=== PATIENT | male | born 1955 | race Caucasian/White ===

== ENCOUNTER → 2016-05-28 | Outpatient (CLI) | payer OTHER ==
[~2016-05-28] MED LIST: /TAMS4CA OR; ANDROGEL TOP; ASPI81TA83 OR; CITA10TA2 PO; CYMB1CAP4 PO; LIDO5DIS EXT; LOSA25TA8 PO; LYRI75CA OR; SOMA350T OR; TPS cream TD; VALS80CA OR; VICO5TAB OR
--- NOTE | 2016-06-05 23:54 | ECWPNPC ---
PATIENT NAME: AMNA BERNAL : 1955 GENDER: MALE VISIT DATE: 05/28/2016 DISCHARGE DATE: 05/28/16 1051 VISIT LOCKED DATE TIME: PHYSICIAN: ANA VERA RESOURCE: ANA VERA REASON FOR APPOINTMENT 1. WC,LOW BACK HISTORY OF PRESENT ILLNESS HISTORY OF PRESENT ILLNESS: PAIN THE PATIENT DESCRIBES THE PAIN... 61 YEAR OLD MALE PATIENT WITH HISTORY OF CHRONIC BACK PAIN. PATIENT DESCRIBES THE PAIN SORE AND HAVING IT ALL THE TIME WITH A PAIN SCORE OF 4/10. PATIENT WAS INJURED IN A WORK RELATED INJURY ON 05/08/2009 WHEN HE WAS GETTING OUT OF A FORKLIFT AND FELL INJURING HIS BACK. PATIENT RECEIVED A LUMBAR EPIDURAL ON 04/24/2016 AND REPORTS OF GETTING GOOD PAIN RELIEF FROM THE PROCEDURE. PATIENT DENIES UNEXPLAINABLE WEIGHT LOSS, FEVER, CHILLS, NEW CHANGES ON HIS URINARY OR BOWEL CONTROL. FALL RISK SCREENING: SCREENING :NO FALLS IN THE PAST YEAR CURRENT MEDICATIONS TAKING FLOMAX 0.4 MG CAPSULE 1 CAPSULE 30 MINUTES AFTER THE SAME MEAL EACH DAY ORALLY ONCE A DAY, NOTES: 04/24/16 0700 TAKING ASPIR-81 81 MG TABLET DELAYED RELEASE 1 TABLET ORALLY ONCE A DAY, NOTES: 04/24/16 0700 TAKING HYDROCODONE-ACETAMINOPHEN 7.5-325 MG TABLET 1 TABLET NEEDED ORALLY TID PRN, NOTES: 04/23/16 1900 TAKING LYRICA 75 MG CAPSULE 1 CAPSULE ORALLY TID PRN, NOTES: 04/23/16 1900 TAKING LIDODERM 5 % PATCH 1 PATCH TO INTACT SKIN REMOVE AFTER 12 HOURS EXTERNALLY ONCE A DAY, NOTES: OFF 04/24/16 0700 MEDICATION LIST REVIEWED AND RECONCILED WITH THE PATIENT PAST MEDICAL HISTORY HTN ALLERGIES N.K.D.A. SURGICAL HISTORY NO SURGICAL HISTORY DOCUMENTED. FAMILY HISTORY NO FAMILY HISTORY DOCUMENTED. SOCIAL HISTORY GENERAL: TOBACCO USE ARE YOU A:NONSMOKER LEARNING BARRIERS / SPECIAL NEEDS ORIENTED TO PLAN OF CARE: PATIENT, PAIN MANAGEMENT PATIENT, ORIENTED TO PLAN OF CARE: PATIENT, PAIN MANAGEMENT PATIENT. NEW PATIENT PAIN DIARY TODAY'S VISITNOTES FROM 0-10, WHAT LEVEL IS YOUR PAIN TODAY?0 PAIN CLINIC PFS, CLERGY, PUBLIC HEALTH REFERRALS PFS REFERRAL NEEDED?NO CLERGY REFERRAL NEEDED?NO PUBLIC HEALTH REFERRAL NEEDED?NO WAS THE PROVIDER NOTIFIED OF ANY PERTINENT INFO?NO PFS REFERRAL NEEDED?NO CLERGY REFERRAL NEEDED?NO PUBLIC HEALTH REFERRAL NEEDED?NO WAS THE PROVIDER NOTIFIED OF ANY PERTINENT INFO?NO HOSPITALIZATION/MAJOR DIAGNOSTIC PROCEDURE NO HOSPITALIZATION HISTORY. REVIEW OF SYSTEMS CONSTITUTIONAL: ANY CHANGE IN YOUR MEDICAL CONDITION? NO . CHILLS NO . FEVER NO . INFECTION: DO YOU HAVE NEW INFECTIONS? NO . DO YOU HAVE HISTORY OF MRSA? NO . MUSCULOSKELETAL: ANY NEW PATTERNS OF PAIN OR NUMBNESS? NO . GASTROENTEROLOGY: ANY NEW CHANGE IN BOWEL CONTROL? NO . GENITOURINARY: ANY NEW CHANGE IN BLADDER CONTROL? NO . IS THERE A CHANCE YOU COULD BE ? NO . HEMATOLOGY/LYMPH: DO YOU TAKE ANY BLOOD THINNERS? (FOR EXAMPLE- COUMADIN, PLAVIX, AGGRENOX, PLATEL, PRADAXA, OR XARELTO) NO . WHEN WAS YOUR LAST DOSE? DATE: TIME: . NEUROLOGY: HAVE YOU FALLEN IN THE PAST 6 MONTHS? YES SLIPPED ON ICE 2 WEEKS AGO-NO INJURY . ANY NEW EXTREMITY NUMBNESS OR WEAKNESS? NO . CARDIOLOGY: DO YOU HAVE A PACEMAKER OR DEFIBRILLATOR? NO . RESPIRATORY: HAVE YOU BEEN SICK IN THE PAST WEEK? NO . FEVER NO . FLU LIKE SYMPTOMS? NO . COUGH NO . INTEGUMENTARY: DO YOU HAVE ANY RASHES OR OPEN SORES? NO . ALLERGIC/IMMUNO: ARE YOU ALLERGIC TO SHELLFISH OR IV DYE? NO . ANY NEW ALLERGIES? NO . PSYCHIATRIC: DO YOU HAVE THOUGHTS OF HURTING YOURSELF OR SOMEONE ELSE? NO . ARE YOU ABUSED, NEGLECTED, OR IN AN UNSAFE ENVIRONMENT? NO . ENDOCRINOLOGY: ARE YOU DIABETIC? NO . OTHER: DO YOU NEED ANY PRESCRIPTIONS? NO . IF YES, PLEASE LIST: ____ . ANY NEW PROBLEMS WITH YOUR MEDICATIONS? NO . WHEN DID YOU LAST EAT? ____ . WHEN DID YOU LAST DRINK? ____ . WHAT DID YOU LAST DRINK? ____ . NAME OF PERSON DRIVING YOU HOME? ____ . DO YOU HAVE ANY OTHER QUESTIONS OR CONCERNS NO . REVIEWED BY: PROVIDER: ANA VERA MD . VITAL SIGNS WT 236 LBS, HT 6'0", BMI 32.00 INDEX, BP 137/77 MM HG, HR 66 /MIN, RR 18 /MIN, TEMP 96.9 F, OXYGEN SAT % 97%, NA INITIALS SC 10:26, REVIEWED BY: AD. EXAMINATION : PATIENT IS ALERT O X 3 AND COOPERATIVE. TENDERNESS ON THE LUMBAR PARASPINAL MUSCLE GROUP. MRI OF THE LUMBAR SPINE DONE ON 03-11-2011 SHOWS A SMALL DISC HERNIATION AT L1-L2, DISC BULGE AT L2-L3, L3-L4, AND L5-S1 OPERATIVE POST-LAMINECTOMY AT L4-L5. ASSESSMENTS POSTLAMINECTOMY SYNDROME, NOT ELSEWHERE CLASSIFIED - M96.1 (PRIMARY) INTERVERTEBRAL DISC DISORDERS WITH RADICULOPATHY, LUMBAR REGION - M51.16 INTERVERTEBRAL DISC DISORDERS WITH RADICULOPATHY, LUMBOSACRAL REGION - M51.17 TREATMENT POSTLAMINECTOMY SYNDROME, NOT ELSEWHERE CLASSIFIED NOTES: WE DISCUSSED SEVERAL ISSUES WITH MR. BERNAL'S PAIN MANAGEMENT CASE. AT THIS TIME THE PAIN WILL CONTINUE WITH THE SAME MEDICATION REGIMEN BEFORE. DUE TO GOOD PAIN RELIEF PAIN IS A CANDIDATE FOR ANOTHER LUMBAR EPIDURAL INJECTION. WE DISCUSSED THE RISK, ALTERNATIVES, AND BENEFITS AND THE PATIENT WOULD LIKE TO PROCEED. INSTRUCTIONS WERE GIVEN, QUESTIONS WERE ANSWERED, PATIENT REPORTS UNDERSTANDING AND AGREES WITH THE PLAN. I, UMANG GIBBS, DOCUMENTED THE ABOVE INFORMATION ACTING A SCRIBE FOR DR. VERA. I HAVE REVIEWED THE ABOVE DOCUMENT, WRITTEN BY UMANG GIBBS SCRIBRigoberto AND I VERIFY THAT IT IS ACCURATE. OTHERS NOTES: WHAT IS LUMBAR EPIDURAL INJECTION? MATERIAL WAS PRINTED,LUMBAR EPIDURAL INJECTION: YOUR PROCEDURE MATERIAL WAS PRINTED. PROCEDURES PN WORKMANS' COMP OPINION IN YOUR OPINION, WAS THE INCIDENT THAT THE PATIENT DESCRIBED THE COMPETENT MEDICAL CAUSE OF THIS INJURY/ILLNESS? YES ARE THE PATIENT'S COMPLAINTS CONSISTENT WITH HIS/HER HISTORY OF THE INJURY/ILLNESS? YES IS THE PATIENT'S HISTORY OF THE INJURY/ILLNESS CONSISTENT WITH YOUR OBJECTIVE FINDING? YES WHAT IS THE PERCENTAGE OF TEMPORARY IMPAIRMENT? MODERATE TO MARKED = 66.7% IS THE PATIENT WORKING? NO DOCTOR ON SITE: ANA STARKS MD PROCEDURE CODES FA211 ESTABILISHED PATIENT [facility] FACILITY CHARGE G8730 PAIN ASSESS POS TOOL F/U PLAN DOC G8427 DOC MEDS VERIFIED W/PT OR RE FOLLOW UP LE PENDING APPROVAL ELECTRONICALLY SIGNED BY ANA VERA MD ON 06/05/2016 AT 09:46 PM EST DISCLAIMER : THIS IS A VISIT SUMMARY EXTRACTED FROM THE [employer] CHART. IT IS NOT A COPY OF THE [employer] PROGRESS NOTE. DAXA
== END ==
LOC: M PAIN 10:40
PROVIDERS: ATTEND Anesthesiology
DX: Z09 Encounter for follow-up examination after completed treatment for conditions other than malignant neoplasm (principal); G89.21 Chronic pain due to trauma; M96.1 Postlaminectomy syndrome, not elsewhere classified; M51.16 Intervertebral disc disorders with radiculopathy, lumbar region; M51.17 Intervertebral disc disorders with radiculopathy, lumbosacral region; I10 Essential (primary) hypertension; Z79.82 Long term (current) use of aspirin; Z79.891 Long term (current) use of opiate analgesic; Z79.899 Other long term (current) drug therapy

== ENCOUNTER → 2016-07-19 | Outpatient (CLI) | payer OTHER ==
--- NOTE | 2016-07-27 23:19 | ECWPNPC ---
PATIENT NAME: AMNA BERNAL : 1955 GENDER: MALE VISIT DATE: 07/19/2016 DISCHARGE DATE: 07/19/16 0959 VISIT LOCKED DATE TIME: PHYSICIAN: ANA VERA RESOURCE: ANA VERA REASON FOR APPOINTMENT 1. W/C BACK PAIN HISTORY OF PRESENT ILLNESS HISTORY OF PRESENT ILLNESS: PAIN THE PATIENT DESCRIBES THE PAIN... 61 YEAR OLD MALE PATIENT WITH HISTORY OF CHRONIC BACK PAIN. PATIENT DESCRIBES THE PAIN SORE AND HAVING IT ALL THE TIME WITH A PAIN SCORE OF 4/10. PATIENT WAS INJURED IN A WORK RELATED INJURY ON 05/08/2009 WHEN HE WAS GETTING OUT OF A FORKLIFT AND FELL INJURING HIS BACK. PATIENT RECEIVED A LUMBAR EPIDURAL ON 04/24/2016 AND STATES THAT THE PAIN IS STARTING TO RETURN. CURRENTLY THE PATIENT IS USING HYDROCODONE, LYRICA, AND THE LIDODERM PATCH WHICH HE STATES KEEPS HIM FUNCTIONAL. PATIENT DENIES UNEXPLAINABLE WEIGHT LOSS, FEVER, CHILLS, NEW CHANGES ON HIS URINARY OR BOWEL CONTROL. FALL RISK SCREENING: SCREENING :NO FALLS IN THE PAST YEAR CURRENT MEDICATIONS TAKING FLOMAX 0.4 MG CAPSULE 1 CAPSULE 30 MINUTES AFTER THE SAME MEAL EACH DAY ORALLY ONCE A DAY, NOTES: 04/24/16 0700 TAKING ASPIR-81 81 MG TABLET DELAYED RELEASE 1 TABLET ORALLY ONCE A DAY, NOTES: 04/24/16 0700 TAKING HYDROCODONE-ACETAMINOPHEN 7.5-325 MG TABLET 1 TABLET NEEDED ORALLY TID PRN, NOTES: 04/23/16 1900 TAKING LYRICA 75 MG CAPSULE 1 CAPSULE ORALLY TID PRN, NOTES: 04/23/16 190 TAKING LIDODERM 5 % PATCH 1 PATCH TO INTACT SKIN REMOVE AFTER 12 HOURS EXTERNALLY ONCE A DAY, NOTES: OFF 04/24/16 0700 MEDICATION LIST REVIEWED AND RECONCILED WITH THE PATIENT PAST MEDICAL HISTORY HTN ALLERGIES N.K.D.A. SURGICAL HISTORY NO SURGICAL HISTORY DOCUMENTED. FAMILY HISTORY NO FAMILY HISTORY DOCUMENTED. SOCIAL HISTORY GENERAL: TOBACCO USE ARE YOU A:NONSMOKER LEARNING BARRIERS / SPECIAL NEEDS ORIENTED TO PLAN OF CARE: PATIENT, PAIN MANAGEMENT PATIENT, ORIENTED TO PLAN OF CARE: PATIENT, PAIN MANAGEMENT PATIENT. NEW PATIENT PAIN DIARY TODAY'S VISITNOTES FROM 0-10, WHAT LEVEL IS YOUR PAIN TODAY?0 PAIN CLINIC PFS, CLERGY, PUBLIC HEALTH REFERRALS PFS REFERRAL NEEDED?NO CLERGY REFERRAL NEEDED?NO PUBLIC HEALTH REFERRAL NEEDED?NO WAS THE PROVIDER NOTIFIED OF ANY PERTINENT INFO?NO PFS REFERRAL NEEDED?NO CLERGY REFERRAL NEEDED?NO PUBLIC HEALTH REFERRAL NEEDED?NO WAS THE PROVIDER NOTIFIED OF ANY PERTINENT INFO?NO HOSPITALIZATION/MAJOR DIAGNOSTIC PROCEDURE NO HOSPITALIZATION HISTORY. REVIEW OF SYSTEMS CONSTITUTIONAL: ANY CHANGE IN YOUR MEDICAL CONDITION? NO . CHILLS NO . FEVER NO . INFECTION: DO YOU HAVE NEW INFECTIONS? NO . DO YOU HAVE HISTORY OF MRSA? NO . MUSCULOSKELETAL: ANY NEW PATTERNS OF PAIN OR NUMBNESS? NO . GASTROENTEROLOGY: ANY NEW CHANGE IN BOWEL CONTROL? NO . GENITOURINARY: ANY NEW CHANGE IN BLADDER CONTROL? NO . IS THERE A CHANCE YOU COULD BE ? NO . HEMATOLOGY/LYMPH: DO YOU TAKE ANY BLOOD THINNERS? (FOR EXAMPLE- COUMADIN, PLAVIX, AGGRENOX, PLATEL, PRADAXA, OR XARELTO) NO . WHEN WAS YOUR LAST DOSE? DATE: TIME: . NEUROLOGY: HAVE YOU FALLEN IN THE PAST 6 MONTHS? NO . ANY NEW EXTREMITY NUMBNESS OR WEAKNESS? NO . CARDIOLOGY: DO YOU HAVE A PACEMAKER OR DEFIBRILLATOR? NO . RESPIRATORY: HAVE YOU BEEN SICK IN THE PAST WEEK? NO . FEVER NO . FLU LIKE SYMPTOMS? NO . COUGH NO . INTEGUMENTARY: DO YOU HAVE ANY RASHES OR OPEN SORES? NO . ALLERGIC/IMMUNO: ARE YOU ALLERGIC TO SHELLFISH OR IV DYE? NO . ANY NEW ALLERGIES? NO . PSYCHIATRIC: DO YOU HAVE THOUGHTS OF HURTING YOURSELF OR SOMEONE ELSE? NO . ARE YOU ABUSED, NEGLECTED, OR IN AN UNSAFE ENVIRONMENT? NO . ENDOCRINOLOGY: ARE YOU DIABETIC? NO . OTHER: DO YOU NEED ANY PRESCRIPTIONS? NO . IF YES, PLEASE LIST: ____ . ANY NEW PROBLEMS WITH YOUR MEDICATIONS? NO . WHEN DID YOU LAST EAT? ____ . WHEN DID YOU LAST DRINK? ____ . WHAT DID YOU LAST DRINK? ____ . NAME OF PERSON DRIVING YOU HOME? ____ . DO YOU HAVE ANY OTHER QUESTIONS OR CONCERNS NO . REVIEWED BY: PROVIDER: ANA VERA MD . VITAL SIGNS WT 236.0 LBS, HT 6'0", BMI 32.00 INDEX, BP 127/84 MM HG, HR 77 /MIN, RR 16 /MIN, TEMP 96.7 F, OXYGEN SAT % 97, NA INITIALS TL 0933. EXAMINATION : PATIENT IS ALERT O X 3 AND COOPERATIVE. TENDERNESS ON THE LUMBAR PARASPINAL MUSCLE GROUP. LIMPING FROM RIGHT LEG. RIGHT LEG IS WEAKER THEN THE LEFT AT EXTENSION AND FLEXION. MRI OF THE LUMBAR SPINE DONE ON 03-11-2011 SHOWS A SMALL DISC HERNIATION AT L1-L2, DISC BULGE AT L2-L3, L3-L4, AND L5-S1 OPERATIVE POST-LAMINECTOMY AT L4-L5. ASSESSMENTS POSTLAMINECTOMY SYNDROME, NOT ELSEWHERE CLASSIFIED - M96.1 (PRIMARY) INTERVERTEBRAL DISC DISORDERS WITH RADICULOPATHY, LUMBAR REGION - M51.16 INTERVERTEBRAL DISC DISORDERS WITH RADICULOPATHY, LUMBOSACRAL REGION - M51.17 TREATMENT POSTLAMINECTOMY SYNDROME, NOT ELSEWHERE CLASSIFIED NOTES: WE DISCUSSED SEVERAL ISSUES WITH MR. BERNAL'S PAIN MANAGEMENT CASE. AT THIS TIME THE PATIENT WILL CONTINUE WITH THE SAME MEDICATION REGIME THAT IS PRESCRIBED BY HIS PRIMARY DOCTOR. THE LUMBAR EPIDURAL DONE IN APRIL GAVE THE PATIENT ROUGHLY 10 WEEKS OF RELIEF. PATIENT REPORTED MORE THEN A 50% REDUCTION IN PAIN AND STATED THAT IT INCREASED HIS MOBILITY AND FUNCTIONALITY. MR. BERNAL WOULD LIKE TO MOVE FORWARD WITH ANOTHER INJECTION. WE DISCUSSED THE RISKS, BENENFITS, AND ALTNERATIVES OF THE LUMBAR EPIDURAL AND THE PATIENT STATES HE WOULD LIKE TO MOVE FORWARD WITH THE INJECTION AT THIS TIME. INSTRUCTIONS WERE GIVEN, QUESTIONS WERE ANSWERED, PATIENT REPORTS UNDERSTANDING AND AGREES WITH THE PLAN. I, SALLY IBARRA, DOCUMENTED THE ABOVE INFORMATION ACTING A SCRIBE FOR DR. VERA. I HAVE REVIEWED THE ABOVE DOCUMENT, WRITTEN BY SALLY MARINELLI AND I VERIFY THAT IT IS ACCURATE. PROCEDURES PN WORKMANS' COMP OPINION IN YOUR OPINION, WAS THE INCIDENT THAT THE PATIENT DESCRIBED THE COMPETENT MEDICAL CAUSE OF THIS INJURY/ILLNESS? YES ARE THE PATIENT'S COMPLAINTS CONSISTENT WITH HIS/HER HISTORY OF THE INJURY/ILLNESS? YES IS THE PATIENT'S HISTORY OF THE INJURY/ILLNESS CONSISTENT WITH YOUR OBJECTIVE FINDING? YES WHAT IS THE PERCENTAGE OF TEMPORARY IMPAIRMENT? MODERATE TO MARKED = 66.7% IS THE PATIENT WORKING? NO DOCTOR ON SITE: ANA STARKS MD PROCEDURE CODES FA211 ESTABILISHED PATIENT [facility] FACILITY CHARGE G8427 DOC MEDS VERIFIED W/PT OR RE G8730 PAIN ASSESS POS TOOL F/U PLAN DOC DISPOSITION & COMMUNICATION FOLLOW UP LESI AFTER APPROVAL ELECTRONICALLY SIGNED BY ANA VERA MD ON 07/27/2016 AT 09:32 PM EDT DISCLAIMER : THIS IS A VISIT SUMMARY EXTRACTED FROM THE [employer] CHART. IT IS NOT A COPY OF THE [employer] PROGRESS NOTE. TESSAD
== END ==
LOC: M PAIN 09:20
PROVIDERS: ATTEND Anesthesiology
DX: M96.1 Postlaminectomy syndrome, not elsewhere classified (principal); M51.16 Intervertebral disc disorders with radiculopathy, lumbar region; M51.17 Intervertebral disc disorders with radiculopathy, lumbosacral region; Z79.899 Other long term (current) drug therapy; Z79.891 Long term (current) use of opiate analgesic; Z79.82 Long term (current) use of aspirin; I10 Essential (primary) hypertension

== ENCOUNTER → 2016-08-12 | Outpatient (CLI) | payer OTHER ==
--- NOTE | 2016-08-25 23:10 | ECWPNPC ---
PATIENT NAME: AMNA BERNAL : 1955 GENDER: MALE VISIT DATE: 08/12/2016 DISCHARGE DATE: 08/12/16 1602 VISIT LOCKED DATE TIME: PHYSICIAN: ANA VERA RESOURCE: ANA VERA REASON FOR APPOINTMENT 1. W/C HISTORY OF PRESENT ILLNESS HISTORY OF PRESENT ILLNESS: PAIN THE PATIENT DESCRIBES THE PAIN... 61 YEAR OLD MALE PATIENT WITH HISTORY OF CHRONIC BACK PAIN. PATIENT DESCRIBES THE PAIN ACHING, TENDER, THROBBING, SORE, AND HAVING IT ALL THE TIME WITH A PAIN SCORE OF 8/10 ON TODAY'S VISIT. PATIENT WAS INJURED IN A WORK RELATED INJURY ON 05/08/2009 WORKING FOR [employer], WHEN HE WAS GETTING OUT OF A FORKLIFT AND FELL INJURING HIS BACK. PATIENT RECEIVED A LUMBAR EPIDURAL ON 04/24/2016, AND STATES THAT THE PAIN HAS NOW RETURNED. PATIENT REPORTS THAT SINCE THE PAIN HAS RETURNED HE HAS DIFFICULTIES SLEEPING, HIS MOBILITY AND FUNCTIONALITY HAS DECREASED. PATIENT DENIES UNEXPLAINABLE WEIGHT LOSS, FEVER, CHILLS, NEW CHANGES ON HIS URINARY OR BOWEL CONTROL. FALL RISK SCREENING: SCREENING :NO FALLS IN THE PAST YEAR CURRENT MEDICATIONS TAKING FLOMAX 0.4 MG CAPSULE 1 CAPSULE 30 MINUTES AFTER THE SAME MEAL EACH DAY ORALLY ONCE A DAY TAKING ASPIR-81 81 MG TABLET DELAYED RELEASE 1 TABLET ORALLY ONCE A DAY TAKING HYDROCODONE-ACETAMINOPHEN 7.5-325 MG TABLET 1 TABLET NEEDED ORALLY TID PRN TAKING LYRICA 75 MG CAPSULE 1 CAPSULE ORALLY TID PRN TAKING LIDODERM 5 % PATCH 1 PATCH TO INTACT SKIN REMOVE AFTER 12 HOURS EXTERNALLY ONCE A DAY MEDICATION LIST REVIEWED AND RECONCILED WITH THE PATIENT PAST MEDICAL HISTORY HTN ALLERGIES N.K.D.A. SURGICAL HISTORY NO SURGICAL HISTORY DOCUMENTED. FAMILY HISTORY NO FAMILY HISTORY DOCUMENTED. SOCIAL HISTORY GENERAL: PAIN CLINIC PFS, CLERGY, PUBLIC HEALTH REFERRALS CLERGY REFERRAL NEEDED?NO WAS THE PROVIDER NOTIFIED OF ANY PERTINENT INFO?NO PFS REFERRAL NEEDED?NO PUBLIC HEALTH REFERRAL NEEDED?NO PATIENT: ____. HOSPITALIZATION/MAJOR DIAGNOSTIC PROCEDURE NO HOSPITALIZATION HISTORY. REVIEW OF SYSTEMS CONSTITUTIONAL: ANY CHANGE IN YOUR MEDICAL CONDITION? NO . CHILLS NO . FEVER NO . INFECTION: DO YOU HAVE NEW INFECTIONS? NO . DO YOU HAVE HISTORY OF MRSA? NO . MUSCULOSKELETAL: ANY NEW PATTERNS OF PAIN OR NUMBNESS? NO . GASTROENTEROLOGY: ANY NEW CHANGE IN BOWEL CONTROL? NO . GENITOURINARY: ANY NEW CHANGE IN BLADDER CONTROL? NO . IS THERE A CHANCE YOU COULD BE ? NO . HEMATOLOGY/LYMPH: DO YOU TAKE ANY BLOOD THINNERS? (FOR EXAMPLE- COUMADIN, PLAVIX, AGGRENOX, PLATEL, PRADAXA, OR XARELTO) NO . WHEN WAS YOUR LAST DOSE? DATE: TIME: . NEUROLOGY: HAVE YOU FALLEN IN THE PAST 6 MONTHS? NO . ANY NEW EXTREMITY NUMBNESS OR WEAKNESS? NO . CARDIOLOGY: DO YOU HAVE A PACEMAKER OR DEFIBRILLATOR? NO . RESPIRATORY: HAVE YOU BEEN SICK IN THE PAST WEEK? NO . FEVER NO . FLU LIKE SYMPTOMS? NO . COUGH NO . INTEGUMENTARY: DO YOU HAVE ANY RASHES OR OPEN SORES? NO . ALLERGIC/IMMUNO: ARE YOU ALLERGIC TO SHELLFISH OR IV DYE? NO . ANY NEW ALLERGIES? NO . PSYCHIATRIC: DO YOU HAVE THOUGHTS OF HURTING YOURSELF OR SOMEONE ELSE? NO . ARE YOU ABUSED, NEGLECTED, OR IN AN UNSAFE ENVIRONMENT? NO . ENDOCRINOLOGY: ARE YOU DIABETIC? NO . OTHER: DO YOU NEED ANY PRESCRIPTIONS? NO . IF YES, PLEASE LIST: ____ . ANY NEW PROBLEMS WITH YOUR MEDICATIONS? NO . WHEN DID YOU LAST EAT? ____ . WHEN DID YOU LAST DRINK? ____ . WHAT DID YOU LAST DRINK? ____ . NAME OF PERSON DRIVING YOU HOME? ____ . DO YOU HAVE ANY OTHER QUESTIONS OR CONCERNS NO . REVIEWED BY: PROVIDER: ANA VERA MD . VITAL SIGNS WT 234.0 LBS, HT 6'0", BMI 31.73 INDEX, BP 121/84 MM HG, HR 68 /MIN, RR 16 /MIN, TEMP 97.9 F, OXYGEN SAT % 94%, NA INITIALS TL 1527, REVIEWED BY: AD. EXAMINATION : PATIENT IS ALERT O X 3 AND COOPERATIVE. TENDERNESS ON THE LUMBAR PARASPINAL MUSCLE GROUP. PATIENT AMBULATES WITH AN ANTALGIC GAIT AND A LIMP ON THE RIGHT LEG. RIGHT LEG IS WEAKER THEN THE LEFT AT EXTENSION AND FLEXION. MRI OF THE LUMBAR SPINE DONE ON 03-11-2011 SHOWS A SMALL DISC HERNIATION AT L1-L2, DISC BULGE AT L2-L3, L3-L4, AND L5-S1 OPERATIVE POST-LAMINECTOMY AT L4-L5. ASSESSMENTS POSTLAMINECTOMY SYNDROME, NOT ELSEWHERE CLASSIFIED - M96.1 (PRIMARY) INTERVERTEBRAL DISC DISORDERS WITH RADICULOPATHY, LUMBAR REGION - M51.16 INTERVERTEBRAL DISC DISORDERS WITH RADICULOPATHY, LUMBOSACRAL REGION - M51.17 TREATMENT POSTLAMINECTOMY SYNDROME, NOT ELSEWHERE CLASSIFIED NOTES: WE DISCUSSED SEVERAL ISSUES WITH MR. BERNAL'S PAIN MANAGEMENT CASE. AT THIS TIME THE PATIENT WILL CONTINUE WITH THE SAME MEDICATION REGIME THAT IS PRESCRIBED BY HIS PRIMARY DOCTOR. DUE TO THE LAST EPIDURAL INJECTION PROVIDING THE PATIENT GOOD PAIN RELIEF FOR 10 WEEKS WITH INCREASED MOBILITY AND FUNCTIONALITY AND A 50 PERCENT DECREASE IN PAIN, HE IS A GOOD CANDIDATE TO RECEIVE ANOTHER L5-S1 LUMBAR EPIDURAL, WE DISCUSSED THE RISK, BENEFITS, AND ALTERNATIVES AND THE PATIENT WOULD LIKE TO PROCEED. PATIENT WILL BE BOOKED PENDING APPROVAL. , INSTRUCTIONS WERE GIVEN, QUESTIONS WERE ANSWERED, PATIENT REPORTS UNDERSTANDING AND AGREES WITH THE PLAN. I, UMANG GIBBS, DOCUMENTED THE ABOVE INFORMATION ACTING A SCRIBE FOR DR. VERA. I HAVE REVIEWED THE ABOVE DOCUMENT, WRITTEN BY UMANG GIBBS SCRIBRigoberto AND I VERIFY THAT IT IS ACCURATE. PROCEDURES PN WORKMANS' COMP OPINION IN YOUR OPINION, WAS THE INCIDENT THAT THE PATIENT DESCRIBED THE COMPETENT MEDICAL CAUSE OF THIS INJURY/ILLNESS? YES ARE THE PATIENT'S COMPLAINTS CONSISTENT WITH HIS/HER HISTORY OF THE INJURY/ILLNESS? YES IS THE PATIENT'S HISTORY OF THE INJURY/ILLNESS CONSISTENT WITH YOUR OBJECTIVE FINDING? YES WHAT IS THE PERCENTAGE OF TEMPORARY IMPAIRMENT? MODERATE TO MARKED = 66.7% IS THE PATIENT WORKING? NO DOCTOR ON SITE: ANA STARKS MD PROCEDURE CODES FA211 ESTABILISHED PATIENT [facility] FACILITY CHARGE G8730 PAIN ASSESS POS TOOL F/U PLAN DOC G8427 DOC MEDS VERIFIED W/PT OR RE DISPOSITION & COMMUNICATION FOLLOW UP LESI PENDING APPROVAL ELECTRONICALLY SIGNED BY ANA VERA MD ON 08/25/2016 AT 05:19 PM EDT DISCLAIMER : THIS IS A VISIT SUMMARY EXTRACTED FROM THE [employer] CHART. IT IS NOT A COPY OF THE [employer] PROGRESS NOTE. DAXA
== END ==
LOC: M PAIN 15:20
PROVIDERS: ATTEND Anesthesiology
DX: Z09 Encounter for follow-up examination after completed treatment for conditions other than malignant neoplasm (principal); M96.1 Postlaminectomy syndrome, not elsewhere classified; M51.16 Intervertebral disc disorders with radiculopathy, lumbar region; M51.17 Intervertebral disc disorders with radiculopathy, lumbosacral region; I10 Essential (primary) hypertension; Z79.82 Long term (current) use of aspirin; Z79.899 Other long term (current) drug therapy

== ENCOUNTER → 2016-08-22 | Outpatient (CLI) | payer OTHER ==
[~2016-08-22] MED LIST changes: +ISOVUE-M 300 61% 15ML VIAL (Q9967) As Ordered ONE; +LIDOCAINE 1% SDV INJ 30 ML VIAL As Ordered ONE; +methylPREDNISolone SUSP 40 MG/ML (DEPO-medrol) VIAL (J1030) As Ordered ONE
--- NOTE | 2016-08-22 15:56 | REP ---
Partial lumbar spine series: Three views: History: Lumbar epidural injection for pain. 8 seconds of fluoroscopy time is reported. Findings: A sequence of three last image hold fluoroscopic spot radiographs of the lumbosacral junction document needle position and contrast injection associated with lumbar epidural injection procedure. Signed by Rene Watt MD 08/22/2016 05:01 P
--- NOTE | 2016-08-28 23:44 | ECWPNPC ---
PATIENT NAME: AMNA BERNAL : 1955 GENDER: MALE VISIT DATE: 08/22/2016 DISCHARGE DATE: 08/22/16 1359 VISIT LOCKED DATE TIME: PHYSICIAN: ANA VERA RESOURCE: ANA VERA REASON FOR APPOINTMENT 1. [facility] [place] HISTORY OF PRESENT ILLNESS HISTORY OF PRESENT ILLNESS: PAIN THE PATIENT DESCRIBES THE PAIN... FALL RISK SCREENING: SCREENING :NO FALLS IN THE PAST YEAR CURRENT MEDICATIONS TAKING FLOMAX 0.4 MG CAPSULE 1 CAPSULE 30 MINUTES AFTER THE SAME MEAL EACH DAY ORALLY ONCE A DAY, NOTES: 08/22/16 0800 TAKING ASPIR-81 81 MG TABLET DELAYED RELEASE 1 TABLET ORALLY ONCE A DAY, NOTES: 08/22/16 0800 TAKING HYDROCODONE-ACETAMINOPHEN 7.5-325 MG TABLET 1 TABLET NEEDED ORALLY TID PRN, NOTES: 08/21/16 1500 TAKING LYRICA 75 MG CAPSULE 1 CAPSULE ORALLY TID PRN, NOTES: 08/21/16 0800 TAKING LIDODERM 5 % PATCH 1 PATCH TO INTACT SKIN REMOVE AFTER 12 HOURS EXTERNALLY ONCE A DAY, NOTES: 08/21/16 MEDICATION LIST REVIEWED AND RECONCILED WITH THE PATIENT PAST MEDICAL HISTORY HTN ALLERGIES N.K.D.A. SOCIAL HISTORY GENERAL: PAIN CLINIC PFS, CLERGY, PUBLIC HEALTH REFERRALS CLERGY REFERRAL NEEDED?NO WAS THE PROVIDER NOTIFIED OF ANY PERTINENT INFO?NO PFS REFERRAL NEEDED?NO PUBLIC HEALTH REFERRAL NEEDED?NO PATIENT: ____. REVIEW OF SYSTEMS CONSTITUTIONAL: ANY CHANGE IN YOUR MEDICAL CONDITION? NO . CHILLS NO . FEVER NO . INFECTION: DO YOU HAVE NEW INFECTIONS? NO . DO YOU HAVE HISTORY OF MRSA? NO . MUSCULOSKELETAL: ANY NEW PATTERNS OF PAIN OR NUMBNESS? NO . GASTROENTEROLOGY: ANY NEW CHANGE IN BOWEL CONTROL? NO . GENITOURINARY: ANY NEW CHANGE IN BLADDER CONTROL? NO . IS THERE A CHANCE YOU COULD BE ? NO . HEMATOLOGY/LYMPH: DO YOU TAKE ANY BLOOD THINNERS? (FOR EXAMPLE- COUMADIN, PLAVIX, AGGRENOX, PLATEL, PRADAXA, OR XARELTO) NO . WHEN WAS YOUR LAST DOSE? DATE: TIME: . NEUROLOGY: HAVE YOU FALLEN IN THE PAST 6 MONTHS? NO . ANY NEW EXTREMITY NUMBNESS OR WEAKNESS? NO . CARDIOLOGY: DO YOU HAVE A PACEMAKER OR DEFIBRILLATOR? NO . RESPIRATORY: HAVE YOU BEEN SICK IN THE PAST WEEK? NO . FEVER NO . FLU LIKE SYMPTOMS? NO . COUGH NO . INTEGUMENTARY: DO YOU HAVE ANY RASHES OR OPEN SORES? NO . ALLERGIC/IMMUNO: ARE YOU ALLERGIC TO SHELLFISH OR IV DYE? NO . ANY NEW ALLERGIES? NO . PSYCHIATRIC: DO YOU HAVE THOUGHTS OF HURTING YOURSELF OR SOMEONE ELSE? NO . ARE YOU ABUSED, NEGLECTED, OR IN AN UNSAFE ENVIRONMENT? NO . ENDOCRINOLOGY: ARE YOU DIABETIC? NO . OTHER: DO YOU NEED ANY PRESCRIPTIONS? NO . IF YES, PLEASE LIST: ____ . ANY NEW PROBLEMS WITH YOUR MEDICATIONS? NO . WHEN DID YOU LAST EAT? ____08/21/16 1900 . WHEN DID YOU LAST DRINK? ____08/21/162099 . WHAT DID YOU LAST DRINK? ____WATER . NAME OF PERSON DRIVING YOU HOME? ____CODY . DO YOU HAVE ANY OTHER QUESTIONS OR CONCERNS NO . REVIEWED BY: PROVIDER: . VITAL SIGNS WT 238.0 LBS, HT 6'0", BMI 32.28 INDEX, BP 132/81 MM HG, HR 71 /MIN, RR 16 /MIN, TEMP 98.5 F, OXYGEN SAT % 99%, NA INITIALS AW 1139, REVIEWED BY: MLF. ASSESSMENTS INTERVERTEBRAL DISC DISORDERS WITH RADICULOPATHY, LUMBOSACRAL REGION - M51.17 (PRIMARY) PROCEDURES PRE PROCEDURE DIAGNOSIS LUMBOSACRAL RADICULOPATHY, LUMBOSACRAL DISC DISORDER WITH RADICULOPATHY POST PROCEDURE DIAGNOSIS LUMBOSACRAL DISC DISORDER WITH RADICULOPATHY , LUMBOSACRAL RADICULOPATHY PROCEDURE L5-S1 EPIDURAL STEROID INJECTION UNDER FLUOROSCOPIC GUIDANCE SURGEON DR. ANA VERA SENIOR CLINICAL STUDY MANAGER NONE ANESTHESIA LOCAL PRE PROCEDURE NOTE THE PATIENT HAS A HISTORY OF CHRONIC LOW BACK PAIN. I EVALUATE THE PATIENT AND REVIEWED THE CHART. I WENT OVER THE RISKS, ALTERNATIVES, AND BENEFITS ASSOCIATED WITH THIS PROCEDURE. THE PATIENT WOULD LIKE TO PROCEED AND GIVE CONSENT TO PERFORMED THE PROCEDURE. THE PATIENT DENIES UNEXPLAINABLE WEIGHT LOSS, FEVER, CHILLS, OR NEW CHANGES IN URINARY OR BOWEL CONTROL. DESCRIPTION OF PROCEDURE THE PATIENT WAS BROUGHT TO THE PROCEDURE ROOM AND PLACED IN THE PRONE POSITION. THE LUMBOSACRAL AREA WAS CLEANED WITH BETADINE SOLUTION AND DRAPED ASEPTICALLY. THE PROCEDURE WAS DONE UNDER STERILE CONDITIONS. I CHECKED LATERALITY AND THE LEVEL WHERE THE PROCEDURE WAS GOING TO BE PERFORMED WITH THE PATIENT AND THE SUPPORTING STAFF AT THE MOMENT OF THE TIME OUT IN THE PROCEDURE ROOM. UNDER FLUOROSCOPIC GUIDANCE, THE TARGET POINT WAS SELECTED AT THE INTERLAMINAR LEVEL OF L5-S1. LIDOCAINE WAS USED TO NUMB THE SKIN AND THE SUBCUTANEOUS TISSUE BELOW IT. EPIDURAL TUOHY NEEDLE, 17-GAUGE, WAS ADVANCED UNDER FLUOROSCOPIC GUIDANCE AND FOLLOWING PATIENT FEEDBACK UNTIL THE EPIDURAL SPACE WAS REACHED, 7 CM DEEP INTO THE SKIN BY THE LOSS OF RESISTANCE TECHNIQUE. ISOVUE M DYE 30%, 0.25 ML, WAS INJECTED SHOWING ADEQUATE SPREAD OF THE DYE. THEN, A SOLUTION OF 3 ML OF NORMAL SALINE WITH DEPO-MEDROL 60 MG WAS INJECTED SLOWLY FOLLOWING PATIENT FEEDBACK. THERE WAS NO EVIDENCE OF BLOOD, PARESTHESIA OR CEREBROSPINAL FLUID DURING THE PROCEDURE. THE PATIENT WAS SENT TO THE RECOVERY ROOM. THE PATIENT WAS MOVING THE EXTREMITIES AND DOING WELL. THERE WAS NO COMPLICATION DURING THE PROCEDURE. FLUOROSCOPY TIME WAS 8 SECONDS. POST PROCEDURE NOTE THE PATIENT WILL BE SEEN IN A FOLLOW UP IN THE NEXT FEW WEEKS. INSTRUCTIONS WERE GIVEN, QUESTIONS WERE ANSWERED, AND THE PATIENT EXPRESSED UNDERSTANDING AND AGREES WITH THE PLAN. I, UMANG GIBBS, DOCUMENTED THE ABOVE INFORMATION ACTING A SCRIBE FOR DR. VERA. I HAVE REVIEWED THE ABOVE DOCUMENT, WRITTEN BY UMANG MARINELLI AND I VERIFY THAT IT IS ACCURATE. PN WORKMANS' COMP OPINION IN YOUR OPINION, WAS THE INCIDENT THAT THE PATIENT DESCRIBED THE COMPETENT MEDICAL CAUSE OF THIS INJURY/ILLNESS? YES ARE THE PATIENT'S COMPLAINTS CONSISTENT WITH HIS/HER HISTORY OF THE INJURY/ILLNESS? YES IS THE PATIENT'S HISTORY OF THE INJURY/ILLNESS CONSISTENT WITH YOUR OBJECTIVE FINDING? YES WHAT IS THE PERCENTAGE OF TEMPORARY IMPAIRMENT? MODERATE TO MARKED = 66.7% IS THE PATIENT WORKING? NO DOCTOR ON SITE: ANA STARKS MD DIAGNOSTIC IMAGING [facility] FLUORO GUIDE SPINE INJECTION (PAIN)[id number] PROCEDURE CODES 23491 LUMBAR/SACRAL W/ IMAGING 6045F RADXPS IN END [id number] PXD DISPOSITION & COMMUNICATION FOLLOW UP 3 WEEKS ELECTRONICALLY SIGNED BY ANA VERA MD ON 08/28/2016 AT 11:17 AM EDT DISCLAIMER : THIS IS A VISIT SUMMARY EXTRACTED FROM THE [employer] CHART. IT IS NOT A COPY OF THE [employer] PROGRESS NOTE. MTDD
== END ==
LOC: M PAIN 11:40
PROVIDERS: ATTEND Anesthesiology
DX: G89.29 Other chronic pain (principal); M51.17 Intervertebral disc disorders with radiculopathy, lumbosacral region; I10 Essential (primary) hypertension; Z79.82 Long term (current) use of aspirin; Z79.899 Other long term (current) drug therapy
CPT/HCPCS: 62323; J1030; Q9967

== ENCOUNTER → 2016-10-16 | Outpatient (CLI) | payer OTHER ==
[~2016-10-16] MED LIST changes: -ISOVUE-M 300 61% 15ML VIAL (Q9967) As Ordered ONE; -LIDOCAINE 1% SDV INJ 30 ML VIAL As Ordered ONE; -methylPREDNISolone SUSP 40 MG/ML (DEPO-medrol) VIAL (J1030) As Ordered ONE
--- NOTE | 2016-10-29 02:47 | ECWPNPC ---
PATIENT NAME: AMNA BERNAL : 1955 GENDER: MALE VISIT DATE: 10/16/2016 DISCHARGE DATE: 10/16/16 1551 VISIT LOCKED DATE TIME: PHYSICIAN: ANA VERA RESOURCE: ANA VERA REASON FOR APPOINTMENT 1. W/C LOW BACK PAIN HISTORY OF PRESENT ILLNESS HISTORY OF PRESENT ILLNESS: PAIN THE PATIENT DESCRIBES THE PAIN... 61 YEAR OLD MALE PATIENT WITH HISTORY OF CHRONIC BACK PAIN. PATIENT DESCRIBES THE PAIN ACHING, TENDER, THROBBING, SORE, AND HAVING IT ALL THE TIME WITH A PAIN SCORE OF 2/10 ON TODAY'S VISIT. PATIENT WAS INJURED IN A WORK RELATED INJURY ON 05/08/2009 WORKING FOR [employer], WHEN HE WAS GETTING OUT OF A FORKLIFT AND FELL INJURING HIS BACK. PATIENT RECEIVED A LUMBAR EPIDURAL ON 08/23/16, AND STATES THAT HIS PAIN IS STILL DECREASED BY 50% AND HAS INCREASED MOBILITY AND FUNCTIONALITY FROM THE INJECTION. PATIENT STATES THAT HIS PAIN IS INCREASED WITH ANY ACTIVITY INCLUDING STANDING, SITTING, OR WALKING FOR ANY LENGTH OF TIME. PATIENT DENIES UNEXPLAINABLE WEIGHT LOSS, FEVER, CHILLS, NEW CHANGES ON HIS URINARY OR BOWEL CONTROL. FALL RISK SCREENING: SCREENING :NO FALLS IN THE PAST YEAR CURRENT MEDICATIONS TAKING FLOMAX 0.4 MG CAPSULE 1 CAPSULE 30 MINUTES AFTER THE SAME MEAL EACH DAY ORALLY ONCE A DAY, NOTES: 08/22/16 0800 TAKING ASPIR-81 81 MG TABLET DELAYED RELEASE 1 TABLET ORALLY ONCE A DAY, NOTES: 08/22/16 0800 TAKING HYDROCODONE-ACETAMINOPHEN 7.5-325 MG TABLET 1 TABLET NEEDED ORALLY TID PRN, NOTES: 08/21/16 1500 TAKING LYRICA 75 MG CAPSULE 1 CAPSULE ORALLY TID PRN, NOTES: 08/21/16 0800 TAKING LIDODERM 5 % PATCH 1 PATCH TO INTACT SKIN REMOVE AFTER 12 HOURS EXTERNALLY ONCE A DAY, NOTES: 08/21/16 MEDICATION LIST REVIEWED AND RECONCILED WITH THE PATIENT PAST MEDICAL HISTORY HTN ALLERGIES N.K.D.A. SURGICAL HISTORY NO SURGICAL HISTORY DOCUMENTED. FAMILY HISTORY NO FAMILY HISTORY DOCUMENTED. SOCIAL HISTORY GENERAL: PAIN CLINIC PFS, CLERGY, PUBLIC HEALTH REFERRALS CLERGY REFERRAL NEEDED?NO WAS THE PROVIDER NOTIFIED OF ANY PERTINENT INFO?NO PFS REFERRAL NEEDED?NO PUBLIC HEALTH REFERRAL NEEDED?NO PATIENT: ____. HOSPITALIZATION/MAJOR DIAGNOSTIC PROCEDURE NO HOSPITALIZATION HISTORY. REVIEW OF SYSTEMS CONSTITUTIONAL: ANY CHANGE IN YOUR MEDICAL CONDITION? NO . CHILLS NO . FEVER NO . INFECTION: DO YOU HAVE NEW INFECTIONS? NO . DO YOU HAVE HISTORY OF MRSA? NO . MUSCULOSKELETAL: ANY NEW PATTERNS OF PAIN OR NUMBNESS? NO . GASTROENTEROLOGY: ANY NEW CHANGE IN BOWEL CONTROL? NO . GENITOURINARY: ANY NEW CHANGE IN BLADDER CONTROL? NO . IS THERE A CHANCE YOU COULD BE ? NO . HEMATOLOGY/LYMPH: DO YOU TAKE ANY BLOOD THINNERS? (FOR EXAMPLE- COUMADIN, PLAVIX, AGGRENOX, PLATEL, PRADAXA, OR XARELTO) NO . WHEN WAS YOUR LAST DOSE? DATE: TIME: . NEUROLOGY: HAVE YOU FALLEN IN THE PAST 6 MONTHS? NO . ANY NEW EXTREMITY NUMBNESS OR WEAKNESS? NO . CARDIOLOGY: DO YOU HAVE A PACEMAKER OR DEFIBRILLATOR? NO . RESPIRATORY: HAVE YOU BEEN SICK IN THE PAST WEEK? NO . FEVER NO . FLU LIKE SYMPTOMS? NO . COUGH NO . INTEGUMENTARY: DO YOU HAVE ANY RASHES OR OPEN SORES? NO . ALLERGIC/IMMUNO: ARE YOU ALLERGIC TO SHELLFISH OR IV DYE? NO . ANY NEW ALLERGIES? NO . PSYCHIATRIC: DO YOU HAVE THOUGHTS OF HURTING YOURSELF OR SOMEONE ELSE? NO . ARE YOU ABUSED, NEGLECTED, OR IN AN UNSAFE ENVIRONMENT? NO . ENDOCRINOLOGY: ARE YOU DIABETIC? NO . OTHER: DO YOU NEED ANY PRESCRIPTIONS? NO . IF YES, PLEASE LIST: ____ . ANY NEW PROBLEMS WITH YOUR MEDICATIONS? NO . WHEN DID YOU LAST EAT? ____ . WHEN DID YOU LAST DRINK? ____ . WHAT DID YOU LAST DRINK? ____ . NAME OF PERSON DRIVING YOU HOME? ____ . DO YOU HAVE ANY OTHER QUESTIONS OR CONCERNS NO . REVIEWED BY: PROVIDER: ANA VERA MD . VITAL SIGNS WT 236 LBS, HT 6'0", BMI 32.00 INDEX, BP 118/77 MM HG, HR 65 /MIN, RR 16 /MIN, TEMP 98.5 F, OXYGEN SAT % 96%, NA INITIALS SC 14:51. EXAMINATION : PATIENT IS ALERT O X 3 AND COOPERATIVE. TENDERNESS ON THE LUMBAR PARASPINAL MUSCLE GROUP. PATIENT AMBULATES WITH AN ANTALGIC GAIT AND A LIMP ON THE RIGHT LEG. RIGHT LEG IS WEAKER THEN THE LEFT AT EXTENSION AND FLEXION. MRI OF THE LUMBAR SPINE DONE ON 03-11-2011 SHOWS A SMALL DISC HERNIATION AT L1-L2, DISC BULGE AT L2-L3, L3-L4, AND L5-S1 OPERATIVE POST-LAMINECTOMY AT L4-L5. ASSESSMENTS POSTLAMINECTOMY SYNDROME, NOT ELSEWHERE CLASSIFIED - M96.1 (PRIMARY) INTERVERTEBRAL DISC DISORDERS WITH RADICULOPATHY, LUMBAR REGION - M51.16 INTERVERTEBRAL DISC DISORDERS WITH RADICULOPATHY, LUMBOSACRAL REGION - M51.17 TREATMENT POSTLAMINECTOMY SYNDROME, NOT ELSEWHERE CLASSIFIED NOTES: WE DISCUSSED SEVERAL ISSUES WITH MR. BERNAL'S PAIN MANAGEMENT CASE. AT THIS TIME THE PATIENT IS DOING VERY WELL FROM THE LUMBAR EPIDURAL ON 08/23/16. PATIENT STILL HAS OVER 50% RELIEF FROM THE PAIN WITH INCREASED MOBILITY AND FUNCTIONALITY. MR. BERNAL STATES THAT NO INTERVENTIONS ARE NEEDED AT THIS TIME AND IS VERY MANAGEABLE. PATIENT WILL RETURN TO THE CLINIC IN 6 WEEKS AND WAS ADVISED TO CALL IF THE PAIN SIGNIFICANTLY WORSENS. INSTRUCTIONS WERE GIVEN, QUESTIONS WERE ANSWERED, PATIENT REPORTS UNDERSTANDING AND AGREES WITH THE PLAN. I, SALLY IBARRA, DOCUMENTED THE ABOVE INFORMATION ACTING A SCRIBE FOR DR. VERA. I HAVE REVIEWED THE ABOVE DOCUMENT, WRITTEN BY SALLY MARINELLI AND I VERIFY THAT IT IS ACCURATE. PROCEDURES PN WORKMANS' COMP OPINION IN YOUR OPINION, WAS THE INCIDENT THAT THE PATIENT DESCRIBED THE COMPETENT MEDICAL CAUSE OF THIS INJURY/ILLNESS? YES ARE THE PATIENT'S COMPLAINTS CONSISTENT WITH HIS/HER HISTORY OF THE INJURY/ILLNESS? YES IS THE PATIENT'S HISTORY OF THE INJURY/ILLNESS CONSISTENT WITH YOUR OBJECTIVE FINDING? YES WHAT IS THE PERCENTAGE OF TEMPORARY IMPAIRMENT? MODERATE TO MARKED = 66.7% IS THE PATIENT WORKING? NO DOCTOR ON SITE: ANA STARKS MD PROCEDURE CODES FA211 ESTABILISHED PATIENT [facility] FACILITY CHARGE G8427 DOC MEDS VERIFIED W/PT OR RE G8730 PAIN ASSESS POS TOOL F/U PLAN DOC DISPOSITION & COMMUNICATION FOLLOW UP 6 WEEKS ELECTRONICALLY SIGNED BY ANA VERA MD ON 10/28/2016 AT 03:34 PM EDT DISCLAIMER : THIS IS A VISIT SUMMARY EXTRACTED FROM THE [employer] CHART. IT IS NOT A COPY OF THE [employer] PROGRESS NOTE. DAXA
== END ==
LOC: M PAIN 14:40
PROVIDERS: ATTEND Anesthesiology
DX: M96.1 Postlaminectomy syndrome, not elsewhere classified (principal); M51.16 Intervertebral disc disorders with radiculopathy, lumbar region; M51.17 Intervertebral disc disorders with radiculopathy, lumbosacral region; I10 Essential (primary) hypertension; Z79.82 Long term (current) use of aspirin; Z79.899 Other long term (current) drug therapy

== ENCOUNTER → 2016-11-08 | Outpatient (CLI) | payer OTHER ==
--- NOTE | 2016-11-12 23:28 | ECWPNPC ---
PATIENT NAME: AMNA BERNAL : 1955 GENDER: MALE VISIT DATE: 11/08/2016 DISCHARGE DATE: 11/08/16 1304 VISIT LOCKED DATE TIME: PHYSICIAN: ANA VERA RESOURCE: ANA VERA REASON FOR APPOINTMENT 1. W/C BACK HISTORY OF PRESENT ILLNESS HISTORY OF PRESENT ILLNESS: PAIN THE PATIENT DESCRIBES THE PAIN... 61 YEAR OLD MALE PATIENT WITH HISTORY OF CHRONIC BACK PAIN. PATIENT DESCRIBES THE PAIN ACHING, TENDER, THROBBING, SORE, AND HAVING IT ALL THE TIME WITH A PAIN SCORE OF 8/10 ON TODAY'S VISIT. PATIENT WAS INJURED IN A WORK RELATED INJURY ON 05/08/2009 WORKING FOR [employer], WHEN HE WAS GETTING OUT OF A FORKLIFT AND FELL INJURING HIS BACK. PATIENT REPORTS OF TRYING PHYSICAL THERAPY IN THE PAST AND IT DID NOT WORK FOR HIM. PATIENT STATES THAT HE HAS NOT HAD BACK SURGERY SINCE HE WAS INJURED IN 2008. PATIENT RECEIVED A LESI ON 08/22/2016 AND STATES THAT THE INJECTION IS NO LONGER PROVIDING HIM GOOD PAIN RELIEF. PATIENT REPORTS OF DIFFICULTIES SLEEPING AND STAYING ASLEEP. PATIENT STATES THAT SINCE THE PAIN HAS RETURNED HE HAS DIFFICULTIES COMPLETING DAILY TASK AND CHORES. , PATIENT DENIES UNEXPLAINABLE WEIGHT LOSS, FEVER, CHILLS, NEW CHANGES ON HIS URINARY OR BOWEL CONTROL. FALL RISK SCREENING: SCREENING :NO FALLS IN THE PAST YEAR CURRENT MEDICATIONS TAKING FLOMAX 0.4 MG CAPSULE 1 CAPSULE 30 MINUTES AFTER THE SAME MEAL EACH DAY ORALLY ONCE A DAY TAKING ASPIR-81 81 MG TABLET DELAYED RELEASE 1 TABLET ORALLY ONCE A DAY TAKING HYDROCODONE-ACETAMINOPHEN 7.5-325 MG TABLET 1 TABLET NEEDED ORALLY TID PRN TAKING LYRICA 75 MG CAPSULE 1 CAPSULE ORALLY TID PRN TAKING LIDODERM 5 % PATCH 1 PATCH TO INTACT SKIN REMOVE AFTER 12 HOURS EXTERNALLY ONCE A DAY, NOTES: ] MEDICATION LIST REVIEWED AND RECONCILED WITH THE PATIENT PAST MEDICAL HISTORY HTN ALLERGIES N.K.D.A. SURGICAL HISTORY NO SURGICAL HISTORY DOCUMENTED. FAMILY HISTORY NO FAMILY HISTORY DOCUMENTED. SOCIAL HISTORY GENERAL: PAIN CLINIC PFS, CLERGY, PUBLIC HEALTH REFERRALS CLERGY REFERRAL NEEDED?NO WAS THE PROVIDER NOTIFIED OF ANY PERTINENT INFO?NO PFS REFERRAL NEEDED?NO PUBLIC HEALTH REFERRAL NEEDED?NO PATIENT: ____. HOSPITALIZATION/MAJOR DIAGNOSTIC PROCEDURE NO HOSPITALIZATION HISTORY. REVIEW OF SYSTEMS REVIEWED BY: PROVIDER: . CONSTITUTIONAL: ANY CHANGE IN YOUR MEDICAL CONDITION? NO . CHILLS NO . FEVER NO . INFECTION: DO YOU HAVE NEW INFECTIONS? NO . DO YOU HAVE HISTORY OF MRSA? NO . MUSCULOSKELETAL: ANY NEW PATTERNS OF PAIN OR NUMBNESS? NO . GASTROENTEROLOGY: ANY NEW CHANGE IN BOWEL CONTROL? NO . GENITOURINARY: ANY NEW CHANGE IN BLADDER CONTROL? NO . IS THERE A CHANCE YOU COULD BE ? NO . HEMATOLOGY/LYMPH: DO YOU TAKE ANY BLOOD THINNERS? (FOR EXAMPLE- COUMADIN, PLAVIX, AGGRENOX, PLATEL, PRADAXA, OR XARELTO) NO . WHEN WAS YOUR LAST DOSE? DATE: TIME: . NEUROLOGY: HAVE YOU FALLEN IN THE PAST 6 MONTHS? NO . ANY NEW EXTREMITY NUMBNESS OR WEAKNESS? NO . CARDIOLOGY: DO YOU HAVE A PACEMAKER OR DEFIBRILLATOR? NO . RESPIRATORY: HAVE YOU BEEN SICK IN THE PAST WEEK? NO . FEVER NO . FLU LIKE SYMPTOMS? NO . COUGH NO . INTEGUMENTARY: DO YOU HAVE ANY RASHES OR OPEN SORES? NO . ALLERGIC/IMMUNO: ARE YOU ALLERGIC TO SHELLFISH OR IV DYE? NO . ANY NEW ALLERGIES? NO . PSYCHIATRIC: DO YOU HAVE THOUGHTS OF HURTING YOURSELF OR SOMEONE ELSE? NO . ARE YOU ABUSED, NEGLECTED, OR IN AN UNSAFE ENVIRONMENT? NO . ENDOCRINOLOGY: ARE YOU DIABETIC? NO . OTHER: DO YOU NEED ANY PRESCRIPTIONS? NO . IF YES, PLEASE LIST: ____ . ANY NEW PROBLEMS WITH YOUR MEDICATIONS? NO . WHEN DID YOU LAST EAT? ____ . WHEN DID YOU LAST DRINK? ____ . WHAT DID YOU LAST DRINK? ____ . NAME OF PERSON DRIVING YOU HOME? ____ . DO YOU HAVE ANY OTHER QUESTIONS OR CONCERNS NO . VITAL SIGNS WT 232 LBS, HT 6'0", BMI 31.46 INDEX, BP 133/85 MM HG, HR 65 /MIN, RR 18 /MIN, TEMP 98.2 F, OXYGEN SAT % 94%, NA INITIALS AW 1240, REVIEWED BY: CM. EXAMINATION : PATIENT IS ALERT O X 3 AND COOPERATIVE. PATIENT HAS DIFFICULTIES STANDING UP FOR THE EXAMINATION. THERE IS TENDERNESS IN THE LOW BACK. PATIENT AMBULATES WITH AN ANTALGIC GAIT. PATIENT'S RIGHT LEG IS WEAKER AT FLEXION AND EXTENSION COMPARED TO THE LEFT LEG. MRI OF THE LUMBAR SPINE DONE ON 03-11-2011 SHOWS A SMALL DISC HERNIATION AT L1-L2, DISC BULGE AT L2-L3, L3-L4, AND L5-S1 OPERATIVE POST-LAMINECTOMY AT L4-L5. ASSESSMENTS POSTLAMINECTOMY SYNDROME, NOT ELSEWHERE CLASSIFIED - M96.1 (PRIMARY) INTERVERTEBRAL DISC DISORDERS WITH RADICULOPATHY, LUMBAR REGION - M51.16 INTERVERTEBRAL DISC DISORDERS WITH RADICULOPATHY, LUMBOSACRAL REGION - M51.17 TREATMENT OTHERS NOTES: WE DISCUSSED SEVERAL ISSUES WITH MR. BERNAL'S PAIN MANAGEMENT CASE. AT THIS TIME THE PATIENT WILL CONTINUE ON THE SAME MEDICATION REGIMEN BEFORE. AFTER EXAMINING THE PATIENT AND REVIEWING THE MRI OF THE LUMBAR SPINE, AND WITH GOOD PAIN RELIEF FROM THE PREVIOUS LESI, PATIENT IS A GOOD CANDIDATE FOR ANOTHER L5-S1 LESI. WE DISCUSSED THE RISK, BENEFITS, AND ALTERNATIVES AND THE PATIENT WOULD LIKE TO PROCEED. PATIENT WILL BE BOOKED PENDING APPROVAL. PATIENT WILL FOLLOW UP WITH ME IN 3 MONTHS. , INSTRUCTIONS WERE GIVEN, QUESTIONS WERE ANSWERED, PATIENT REPORTS UNDERSTANDING AND AGREES WITH THE PLAN. I, UMANG GIBBS, DOCUMENTED THE ABOVE INFORMATION ACTING A SCRIBE FOR DR. VERA. I HAVE REVIEWED THE ABOVE DOCUMENT, WRITTEN BY UMANG GIBBS SCRIBRigoberto AND I VERIFY THAT IT IS ACCURATE. PROCEDURES PN WORKMANS' COMP OPINION IN YOUR OPINION, WAS THE INCIDENT THAT THE PATIENT DESCRIBED THE COMPETENT MEDICAL CAUSE OF THIS INJURY/ILLNESS? YES ARE THE PATIENT'S COMPLAINTS CONSISTENT WITH HIS/HER HISTORY OF THE INJURY/ILLNESS? YES IS THE PATIENT'S HISTORY OF THE INJURY/ILLNESS CONSISTENT WITH YOUR OBJECTIVE FINDING? YES WHAT IS THE PERCENTAGE OF TEMPORARY IMPAIRMENT? MODERATE TO MARKED = 66.7% IS THE PATIENT WORKING? NO DOCTOR ON SITE: ANA STARKS MD PROCEDURE CODES G8730 PAIN ASSESS POS TOOL F/U PLAN DOC G8427 DOC MEDS VERIFIED W/PT OR RE FA211 ESTABILISHED PATIENT [facility] FACILITY CHARGE DISPOSITION & COMMUNICATION FOLLOW UP 3 MONTHS ELECTRONICALLY SIGNED BY ANA VERA MD ON 11/12/2016 AT 09:48 PM EDT DISCLAIMER : THIS IS A VISIT SUMMARY EXTRACTED FROM THE [email or web address] CHART. IT IS NOT A COPY OF THE [email or web address] PROGRESS NOTE. DAXA
== END ==
LOC: M PAIN 12:40
PROVIDERS: ATTEND Anesthesiology
DX: M96.1 Postlaminectomy syndrome, not elsewhere classified (principal); M51.16 Intervertebral disc disorders with radiculopathy, lumbar region; M51.17 Intervertebral disc disorders with radiculopathy, lumbosacral region; I10 Essential (primary) hypertension; Z79.82 Long term (current) use of aspirin; Z79.899 Other long term (current) drug therapy

== ENCOUNTER → 2017-01-31 | Outpatient (CLI) | payer OTHER ==
--- NOTE | 2017-02-12 01:22 | ECWPNPC ---
PATIENT NAME: AMNA BERNAL : 1955 GENDER: MALE VISIT DATE: 01/31/2017 DISCHARGE DATE: 01/31/17 1429 VISIT LOCKED DATE TIME: PHYSICIAN: ANA VERA RESOURCE: ANA VERA REASON FOR APPOINTMENT 1. W/C BACK PAIN HISTORY OF PRESENT ILLNESS HISTORY OF PRESENT ILLNESS: PAIN THE PATIENT DESCRIBES THE PAIN... 61 YEAR OLD MALE PATIENT WITH HISTORY OF CHRONIC LOW BACK PAIN. PATIENT DESCRIBES THE PAIN ACHING, TENDER, SORE AND HAVING IT ALL THE TIME WITH A PAIN SCORE OF 9/10. PATIENT WAS INJURED IN A WORK RELATED INJURY ON 05/08/2009 WORKING FOR [employer], WHEN HE WAS GETTING OUT OF A FORKLIFT AND FELL INJURING HIS BACK. PATIENT STATES THAT HE HAS NOT HAD BACK SURGERY SINCE HE WAS INJURED IN 2008. PATIENT RECEIVED A LESI ON 08/22/2016 AND STATES THAT THE INJECTION GAVE HIM OVER 10 WEEKS OF MORE THAN 50% RELIEF FROM HIS PAIN WITH INCREASED MOBILITY AND FUNCTIONALITY. PATIENT WAS ALSO ABLE TO STOP USING THE MEDICATION DUE TO THE RELIEF FROM THE INJECTION. IN THE LAST FEW WEEKS THE PAIN HAS COME BACK. NOW, PATIENT REPORTS OF DIFFICULTIES SLEEPING AND STAYING ASLEEP. PATIENT STATES THAT SINCE THE PAIN HAS RETURNED HE HAS DIFFICULTIES COMPLETING DAILY TASK AND CHORES. , PATIENT DENIES UNEXPLAINABLE WEIGHT LOSS, FEVER, CHILLS, NEW CHANGES ON HIS URINARY OR BOWEL CONTROL. FALL RISK SCREENING: SCREENING :NO FALLS IN THE PAST YEAR CURRENT MEDICATIONS TAKING FLOMAX 0.4 MG CAPSULE 1 CAPSULE 30 MINUTES AFTER THE SAME MEAL EACH DAY ORALLY ONCE A DAY TAKING ASPIR-81 81 MG TABLET DELAYED RELEASE 1 TABLET ORALLY ONCE A DAY TAKING HYDROCODONE-ACETAMINOPHEN 7.5-325 MG TABLET 1 TABLET NEEDED ORALLY TID PRN TAKING LYRICA 75 MG CAPSULE 1 CAPSULE ORALLY TID PRN TAKING LIDODERM 5 % PATCH 1 PATCH TO INTACT SKIN REMOVE AFTER 12 HOURS EXTERNALLY ONCE A DAY, NOTES: ] MEDICATION LIST REVIEWED AND RECONCILED WITH THE PATIENT PAST MEDICAL HISTORY HTN ALLERGIES N.K.D.A. REVIEW OF SYSTEMS REVIEWED BY: PROVIDER: ANA VERA MD . CONSTITUTIONAL: ANY CHANGE IN YOUR MEDICAL CONDITION? NO . CHILLS NO . FEVER NO . INFECTION: DO YOU HAVE NEW INFECTIONS? NO . DO YOU HAVE HISTORY OF MRSA? NO . MUSCULOSKELETAL: ANY NEW PATTERNS OF PAIN OR NUMBNESS? YES PT REPORTS HIS PAIN IS INCREASED IN INTENSITY AND EXTENDING FURTHER DOWN RIGHT LEG . GASTROENTEROLOGY: ANY NEW CHANGE IN BOWEL CONTROL? NO . GENITOURINARY: ANY NEW CHANGE IN BLADDER CONTROL? NO . IS THERE A CHANCE YOU COULD BE ? NO . HEMATOLOGY/LYMPH: DO YOU TAKE ANY BLOOD THINNERS? (FOR EXAMPLE- COUMADIN, PLAVIX, AGGRENOX, PLATEL, PRADAXA, OR XARELTO) NO . WHEN WAS YOUR LAST DOSE? DATE: TIME: . NEUROLOGY: HAVE YOU FALLEN IN THE PAST 6 MONTHS? NO . ANY NEW EXTREMITY NUMBNESS OR WEAKNESS? NO . CARDIOLOGY: DO YOU HAVE A PACEMAKER OR DEFIBRILLATOR? NO . RESPIRATORY: HAVE YOU BEEN SICK IN THE PAST WEEK? NO . FEVER NO . FLU LIKE SYMPTOMS? NO . COUGH NO . INTEGUMENTARY: DO YOU HAVE ANY RASHES OR OPEN SORES? NO . ALLERGIC/IMMUNO: ARE YOU ALLERGIC TO SHELLFISH OR IV DYE? NO . ANY NEW ALLERGIES? NO . PSYCHIATRIC: DO YOU HAVE THOUGHTS OF HURTING YOURSELF OR SOMEONE ELSE? NO . ARE YOU ABUSED, NEGLECTED, OR IN AN UNSAFE ENVIRONMENT? NO . ENDOCRINOLOGY: ARE YOU DIABETIC? NO . OTHER: DO YOU NEED ANY PRESCRIPTIONS? NO . IF YES, PLEASE LIST: ____ . ANY NEW PROBLEMS WITH YOUR MEDICATIONS? NO . WHEN DID YOU LAST EAT? ____ . WHEN DID YOU LAST DRINK? ____ . WHAT DID YOU LAST DRINK? ____ . NAME OF PERSON DRIVING YOU HOME? ____ . DO YOU HAVE ANY OTHER QUESTIONS OR CONCERNS YES PT LAST HAD LESI 08/26, AND WOULD LIKE ANOTHER ONE [facility], HAS BEEN CALLING REPEATEDLY WITHOUT GETTING ANY RESPONSE. . VITAL SIGNS WT 230.8 LBS, HT 6'0", BMI 31.30 INDEX, BP 149/81 MM HG, HR 80 /MIN, RR 16 /MIN, TEMP 98.4 F, OXYGEN SAT % 98%, SAFE IN ENV? (Y/N) YES, REVIEWED BY: LISA. EXAMINATION : PATIENT IS ALERT O X 3 AND COOPERATIVE. PATIENT HAS DIFFICULTIES STANDING UP FOR THE EXAMINATION. THERE IS TENDERNESS IN THE LOW BACK. PATIENT AMBULATES WITH AN ANTALGIC GAIT. PATIENT'S RIGHT LEG IS WEAKER AT FLEXION AND EXTENSION COMPARED TO THE LEFT LEG. RIGHT LEG IS POSITIVE FOR PAIN 10 DEGREES IN THE STRAIGHT LEG RAISE. PATIENT HAS DIFFICULTIES MOVING AROUND. MRI OF THE LUMBAR SPINE DONE ON 03-11-2011 SHOWS A SMALL DISC HERNIATION AT L1-L2, DISC BULGE AT L2-L3, L3-L4, AND L5-S1 OPERATIVE POST-LAMINECTOMY AT L4-L5. 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 BERNAL'S PAIN MANAGEMENT CASE. AT THIS TIME THE PATIENT WILL CONTINUE ON THE SAME MEDICATION REGIMEN BEFORE. PATIENT IS USING THE HYDROCODONE AND LIDODERM FOR THE SOMATIC PAIN AND LYRICA FOR THE NEUROPATHIC PAIN. PATIENT DENIES ABUSE OF ANY MEDICATION, DENIES USE OF ILLEGAL SUBSTANCES, AND STATES HE IS ONLY USING THE MEDICATION FOR PAIN MANAGEMENT. ISTOP REVIEWED [id number]. WE DISCUSSED WHAT INTERVENTIONS MAY AID THE PATIENT IN PAIN RELIEF FROM THE BACK AND RADICULAR PAIN. DUE TO THE BULGING DISC I WOULD LIKE TO PROCEED WITH A LUMBER EPIDURAL. PATIENT HAD RECEIVED A LUMBAR EPIDURAL ON 08/22/16 THAT GAVE HIM OVER 50% RELIEF FROM HIS PAIN WITH INCREASED MOBILITY AND FUNCTIONALITY FOR OVER 2 MONTHS. PATIENT WAS ABLE TO STOP ALMOST ALL PAIN MEDICATION DUE TO THE EPIDURAL. I WOULD LIKE FROM WC A REVIEW OF THE DENIAL OF THE LESI FROM THE PREVIOUS REQUEST I DISAGREE WITH THE STATEMENT DONE IN THE DENIAL : "LESI (08/22/16) NO LONGER PROVIDING HIM GOOD RELIEF". THE PATIENT RECEIVED OVER 8 WEEKS OF RELIEF FROM THE INJECTION I WOULD LIKE TO PROCEED WITH A LUMBAR EPIDURAL AT THIS THIS. WE DISCUSSED THE RISKS, BENEFITS, AND ALTERNATIVES OF THE INJECTION AND THE PATIENT WOULD LIKE TO PROCEED AT THIS TIME. INSTRUCTIONS WERE GIVEN, QUESTIONS WERE ANSWERED, PATIENT REPORTS UNDERSTANDING AND AGREES WITH THE PLAN. I, SALLY IBARRA, DOCUMENTED THE ABOVE INFORMATION ACTING A SCRIBE FOR DR. VERA. I HAVE REVIEWED THE ABOVE DOCUMENT, WRITTEN BY SALLY MARINELLI AND I VERIFY THAT IT IS ACCURATE. PROCEDURES PN WORKMANS' COMP OPINION IN YOUR OPINION, WAS THE INCIDENT THAT THE PATIENT DESCRIBED THE COMPETENT MEDICAL CAUSE OF THIS INJURY/ILLNESS? YES ARE THE PATIENT'S COMPLAINTS CONSISTENT WITH HIS/HER HISTORY OF THE INJURY/ILLNESS? YES IS THE PATIENT'S HISTORY OF THE INJURY/ILLNESS CONSISTENT WITH YOUR OBJECTIVE FINDING? YES WHAT IS THE PERCENTAGE OF TEMPORARY IMPAIRMENT? MARKED = 75% IS THE PATIENT WORKING? NO DOCTOR ON SITE: ANA STARKS MD PROCEDURE CODES FA211 ESTABILISHED PATIENT [facility] FACILITY CHARGE G8427 DOC MEDS VERIFIED W/PT OR RE G8730 PAIN ASSESS POS TOOL F/U PLAN DOC DISPOSITION & COMMUNICATION FOLLOW UP LESI AFTER APPROVAL ELECTRONICALLY SIGNED BY ANA VERA MD ON 02/10/2017 AT 01:42 PM EDT DISCLAIMER : THIS IS A VISIT SUMMARY EXTRACTED FROM THE [employer] CHART. IT IS NOT A COPY OF THE [employer] PROGRESS NOTE. DAXA
== END ==
LOC: M PAIN 13:45
PROVIDERS: ATTEND Anesthesiology
DX: M96.1 Postlaminectomy syndrome, not elsewhere classified (principal); M51.16 Intervertebral disc disorders with radiculopathy, lumbar region; M51.17 Intervertebral disc disorders with radiculopathy, lumbosacral region; I10 Essential (primary) hypertension; Z79.82 Long term (current) use of aspirin; Z79.891 Long term (current) use of opiate analgesic; Z79.899 Other long term (current) drug therapy

== ENCOUNTER → 2017-05-21 | Outpatient (CLI) | payer OTHER | LOC: M PAIN 10:00 | DX: M96.1 Postlaminectomy syndrome, not elsewhere classified (principal); M51.16 Intervertebral disc disorders with radiculopathy, lumbar region; M51.17 Intervertebral disc disorders with radiculopathy, lumbosacral region; I10 Essential (primary) hypertension; Z79.82 Long term (current) use of aspirin; Z79.899 Other long term (current) drug therapy | CPT/HCPCS: G0463 ==

== ENCOUNTER → 2017-06-25 | Outpatient (CLI) | payer OTHER ==
[~2017-06-25] MED LIST changes: -/TAMS4CA OR; -ANDROGEL TOP; -ASPI81TA83 OR; -CITA10TA2 PO; -CYMB1CAP4 PO; +ISOVUE-M 300 61% 15ML VIAL (Q9967) As Ordered; -LIDO5DIS EXT; +LIDOCAINE 1% SDV INJ 30 ML VIAL As Ordered; -LOSA25TA8 PO; -LYRI75CA OR; -SOMA350T OR; -TPS cream TD; -VALS80CA OR; -VICO5TAB OR; +methylPREDNISolone SUSP 40 MG/ML (DEPO-medrol) VIAL (J1030) As Ordered
== END ==
LOC: M PAIN 10:00
DX: G89.29 Other chronic pain (principal); M51.17 Intervertebral disc disorders with radiculopathy, lumbosacral region; I10 Essential (primary) hypertension; Z79.82 Long term (current) use of aspirin; Z79.899 Other long term (current) drug therapy
CPT/HCPCS: J1030

== ENCOUNTER → 2017-07-09 | Outpatient (CLI) | payer OTHER | LOC: M PAIN 08:45 | DX: M96.1 Postlaminectomy syndrome, not elsewhere classified (principal); M51.16 Intervertebral disc disorders with radiculopathy, lumbar region; M51.17 Intervertebral disc disorders with radiculopathy, lumbosacral region; Z79.82 Long term (current) use of aspirin; Z79.891 Long term (current) use of opiate analgesic; Z79.899 Other long term (current) drug therapy | CPT/HCPCS: G0463 ==

== ENCOUNTER → 2017-08-22 | Outpatient (CLI) | payer OTHER | LOC: M PAIN 10:45 | DX: M96.1 Postlaminectomy syndrome, not elsewhere classified (principal); M51.16 Intervertebral disc disorders with radiculopathy, lumbar region; M51.17 Intervertebral disc disorders with radiculopathy, lumbosacral region; I10 Essential (primary) hypertension; Z79.82 Long term (current) use of aspirin; Z79.899 Other long term (current) drug therapy | CPT/HCPCS: G0463 ==

== ENCOUNTER → 2017-10-02 | Outpatient (CLI) | payer OTHER | LOC: M PAIN 10:15 | DX: M96.1 Postlaminectomy syndrome, not elsewhere classified (principal); M51.16 Intervertebral disc disorders with radiculopathy, lumbar region; M51.17 Intervertebral disc disorders with radiculopathy, lumbosacral region; I10 Essential (primary) hypertension; Z79.82 Long term (current) use of aspirin; Z79.899 Other long term (current) drug therapy | CPT/HCPCS: G0463 ==

== ENCOUNTER → 2017-11-04 | Outpatient (CLI) | payer OTHER | LOC: M PAIN 10:15 | DX: G89.29 Other chronic pain (principal); M96.1 Postlaminectomy syndrome, not elsewhere classified; I10 Essential (primary) hypertension; Z79.82 Long term (current) use of aspirin; Z79.899 Other long term (current) drug therapy | CPT/HCPCS: J1030 ==

== ENCOUNTER → 2017-12-02 | Outpatient (CLI) | payer OTHER | LOC: M PAIN 10:45 | DX: M96.1 Postlaminectomy syndrome, not elsewhere classified (principal); M51.16 Intervertebral disc disorders with radiculopathy, lumbar region; M51.17 Intervertebral disc disorders with radiculopathy, lumbosacral region; I10 Essential (primary) hypertension; Z79.82 Long term (current) use of aspirin; Z79.899 Other long term (current) drug therapy | CPT/HCPCS: G0463 ==

== ENCOUNTER → 2018-01-14 | Outpatient (CLI) | payer OTHER | LOC: M PAIN 09:15 | DX: M96.1 Postlaminectomy syndrome, not elsewhere classified (principal); M51.16 Intervertebral disc disorders with radiculopathy, lumbar region; M51.17 Intervertebral disc disorders with radiculopathy, lumbosacral region; I10 Essential (primary) hypertension; Z79.82 Long term (current) use of aspirin; Z79.899 Other long term (current) drug therapy | CPT/HCPCS: G0463 ==

== ENCOUNTER → 2018-02-27 | Outpatient (CLI) | payer OTHER | LOC: M PAIN 15:15 | DX: M96.1 Postlaminectomy syndrome, not elsewhere classified (principal); M51.16 Intervertebral disc disorders with radiculopathy, lumbar region; M51.17 Intervertebral disc disorders with radiculopathy, lumbosacral region; I10 Essential (primary) hypertension; Z79.82 Long term (current) use of aspirin; Z79.899 Other long term (current) drug therapy | CPT/HCPCS: G0463 ==

== ENCOUNTER → 2018-04-13 | Outpatient (CLI) | payer OTHER | LOC: M PAIN 10:45 | DX: M96.1 Postlaminectomy syndrome, not elsewhere classified (principal); M51.17 Intervertebral disc disorders with radiculopathy, lumbosacral region; M48.07 Spinal stenosis, lumbosacral region; I10 Essential (primary) hypertension; Z79.82 Long term (current) use of aspirin; Z79.899 Other long term (current) drug therapy | CPT/HCPCS: J1030 ==

== ENCOUNTER → 2018-07-24 | Outpatient (CLI) | payer OTHER ==
[~2018-07-24] MED LIST changes: +/TAMS4CA OR; +ANDROGEL TOP; +ASPI81TA83 OR; +CITA10TA2 PO; +CYMB1CAP4 PO; -ISOVUE-M 300 61% 15ML VIAL (Q9967) As Ordered; +LIDO5DIS EXT; -LIDOCAINE 1% SDV INJ 30 ML VIAL As Ordered; +LOSA25TA8 PO; +LYRI75CA OR; +SOMA350T OR; +TPS cream TD; +VALS80CA OR; +VICO5TAB OR; -methylPREDNISolone SUSP 40 MG/ML (DEPO-medrol) VIAL (J1030) As Ordered
--- NOTE | 2018-08-07 01:40 | ECWPNPC ---
PATIENT NAME: AMNA BERNAL : 1955 GENDER: MALE VISIT DATE: 07/24/2018 DISCHARGE DATE: 07/24/18 1245 VISIT LOCKED DATE TIME: PHYSICIAN: ANA VERA MD RESOURCE: ANA VERA MD REASON FOR APPOINTMENT 1. W/C LOW BACK- POST LESI HISTORY OF PRESENT ILLNESS HISTORY OF PRESENT ILLNESS: PAIN THE PATIENT DESCRIBES THE PAIN... 63 YEAR OLD MALE PATIENT WITH A HISTORY OF CHRONIC LOW BACK PAIN. THE PATIENT DESCRIBES THE PAIN ACHING, SORE, TENDER, AND CONTINUOUS WITH A PAIN SCORE OF 8-10/10 DEPENDING ON PHYSICAL ACTIVITY. THE PATIENT WAS HURT IN A WORK RELATED INJURY ON 05/08/2009 WHILE WORKING FOR [employer] WHEN HE FELL WHILE GETTING OUT OF A FORKLIFT CAUSING HIM TO INJURE HIS BACK. THE PATIENT SAYS HIS PAIN STARTS IN HIS LOW BACK AND RADIATES DOWN INTO HIS RIGHT BUTTOCK, HIP, AND DOWN HIS RIGHT LEG. THE PATIENT RECEIVED A LUMBAR EPIDURAL STEROID INJECTION ON 04/13/2018 AND REPORTS HAVING MORE THAN 80% PAIN RELIEF FOR OVER 2 MONTHS. THE PATIENT SAYS THAT HE INCREASED HIS FUNCTIONALITY AND WAS ABLE TO REDUCE HIS MEDICATIONS FOLLOWING THE INJECTION. 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 THE PATIENT IS CURRENTLY USING LYRICA AND LIDODERM PATCHES TO AID IN PAIN RELIEF. THE PATIENT SAYS HE IS CURRENTLY ONLY USING HYDROCODONE IF HIS PAIN IS EXTREME. PATIENT DENIES UNEXPLAINABLE WEIGHT LOSS, FEVER, CHILLS, NEW CHANGES ON HIS URINARY OR BOWEL CONTROL. FALL RISK SCREENING: SCREENING : NO FALLS IN THE PAST YEAR. CURRENT MEDICATIONS TAKING LEVOTHYROXINE SODIUM 25 MCG CAPSULE 1 TABLET ON AN EMPTY STOMACH IN THE MORNING ORALLY ONCE A DAY TAKING FLOMAX 0.4 MG CAPSULE 1 CAPSULE 30 MINUTES AFTER THE SAME MEAL EACH DAY ORALLY ONCE A DAY TAKING ASPIR-81 81 MG TABLET DELAYED RELEASE 1 TABLET ORALLY ONCE A DAY TAKING LIDODERM 5 % PATCH 1 PATCH TO INTACT SKIN REMOVE AFTER 12 HOURS EXTERNALLY ONCE A DAY TAKING LYRICA 75 MG CAPSULE 1 CAPSULE ORALLY TID PRN TAKING HYDROCODONE-ACETAMINOPHEN 7.5-325 MG TABLET 1 TABLET NEEDED ORALLY TID PRN MEDICATION LIST REVIEWED AND RECONCILED WITH THE PATIENT PAST MEDICAL HISTORY HTN LOW BACK PAIN ALLERGIES N.K.D.A. SURGICAL HISTORY LAMINECTOMY L4-L5 2005 FAMILY HISTORY MOTHER: ALIVE, DIAGNOSED WITH OTHER 3 BROTHER(S) , 1 SISTER(S) . 2 SON(S) - HEALTHY. FATHER UNKNOWNMOM-DEMENTIAONE BROTHER R/T HEART DISEASE. SOCIAL HISTORY GENERAL: TOBACCO USE ARE YOU A:NONSMOKER LATEX QUESTIONNAIRE LATEX ALLERGY : HAVE YOU EVER DEVELOPED ANY TYPE OF REACTION AFTER HANDLING LATEX PRODUCTS SUCH RUBBER GLOVES, CONDOMS, DIAPHRAGMS, BALLOONS, SOCKS, OR UNDERWEAR?NO LATEX ALLERGY : HAVE YOU EVER DEVELOPED ANY TYPE OF REACTION DURING OR AFTER DENTAL APPOINTMENT, VAGINAL/RECTAL EXAMINATION, SURGICAL PROCEDURE, OR ANY OTHER EXPOSURE?NO LATEX RISK : HAVE YOU EVER HAD ANY DIFFICULTY BREATHING OR HIVES AFTER EATING OR HANDLING ANY FRUITS, OR VEGETABLES; SUCH KIWI, BANANAS, STONE FRUITS, OR CHESTNUTSNO LATEX RISK : DO YOU HAVE A PREVIOUS PERSONAL HISTORY OF MORE THAN NINE SURGERIES, SPINA BIFIDA, OR REPEATED CATHERTIZATIONS? NO LATEX RISK : ARE YOU FREQUENTLY EXPOSED TO LATEX PRODUCTS IN YOUR OCCUPATION?NO DATE ASKED : 07/24/2018 ALCOHOL SCREENING DID YOU HAVE A DRINK CONTAINING ALCOHOL IN THE PAST YEAR?NO POINTS0 INTERPRETATIONNEGATIVE RECREATIONAL DRUG USE DRUG USE?NO CAFFEINE CAFFEINE USE?YES HOW OFTEN AND HOW MUCH? 1 CUP DAILY [employer]AP[employer] [id number] JAIN LANGUAGE LANGUAGES SPOKEN:KYRGYZ EDUCATION LEVEL OF EDUCATION:NOT FINISHED COLLEGE LEARNING BARRIERS / SPECIAL NEEDS BARRIERS TO LEARNING?NO HEARING IMPAIRED?NO VISION IMPAIRED?NO COGNITIVELY IMPAIRED?NO READINESS TO LEARN?YES LEARNING PREFERENCES?NO LEARNING CAPABILITIES PRESENT?YES EMOTIONAL BARRIERS?NO SPECIAL DEVICES?NO MARKETING RESEARCH COORDINATOR NEEDED?NO DOMESTIC VIOLENCE DO YOU FEEL SAFE IN YOUR ENVIRONMENT?YES PAIN CLINIC PFS, CLERGY, PUBLIC HEALTH REFERRALS PFS REFERRAL NEEDED?NO CLERGY REFERRAL NEEDED?NO PUBLIC HEALTH REFERRAL NEEDED?NO WAS THE PROVIDER NOTIFIED OF ANY PERTINENT INFO? N/A HAS THE PATIENT BEEN EDUCATED REGARDING HIS/HER PLAN OF CARE?YES PLEASE DOCUMENT ANY ADDTIONAL DETAILS. LUMBAR EPIDURAL HAS THE PATIENT BEEN EDUCATED REGARDING PAIN, THE RISK FOR PAIN, THE IMPORTANCE OF EFFECTIVE PAIN MANAGEMENT, AND THE PAIN ASSESSMENT PROCESS?YES ADVANCE DIRECTIVE ADVANCE DIRECTIVE DISCUSSED WITH PATIENT:YES 07/24/18 1158 PT DOES NOT HAVE ANY ADVANCED DIRECTIOS AND HE DECLINES INFORMATION ON HCP AT THIS TIME. BV REVIEWED WITH PATIENT 01/14/18 5015 [facility]04/13/18 1121 REVIEWED WITH PT. KESHIA WITH PT 07/24/18 1158 BV. HOSPITALIZATION/MAJOR DIAGNOSTIC PROCEDURE BACK PAIN REVIEW OF SYSTEMS REVIEWED BY: PROVIDER: ANA VERA MD . CONSTITUTIONAL: ANY CHANGE IN YOUR MEDICAL CONDITION? NO . CHILLS NO . FEVER NO . INFECTION: DO YOU HAVE NEW INFECTIONS? NO . DO YOU HAVE HISTORY OF MRSA? NO . MUSCULOSKELETAL: ANY NEW PATTERNS OF PAIN OR NUMBNESS? NO . GASTROENTEROLOGY: ANY NEW CHANGE IN BOWEL CONTROL? NO . GENITOURINARY: ANY NEW CHANGE IN BLADDER CONTROL? NO . IS THERE A CHANCE YOU COULD BE ? NO . HEMATOLOGY/LYMPH: DO YOU TAKE ANY BLOOD THINNERS? (FOR EXAMPLE- COUMADIN, PLAVIX, AGGRENOX, PLATEL, PRADAXA, OR XARELTO) NO . WHEN WAS YOUR LAST DOSE? DATE: TIME: . NEUROLOGY: HAVE YOU FALLEN IN THE PAST 12 MONTHS? NO . ANY NEW EXTREMITY NUMBNESS OR WEAKNESS? NO . CARDIOLOGY: DO YOU HAVE A PACEMAKER OR DEFIBRILLATOR? NO . RESPIRATORY: HAVE YOU BEEN SICK IN THE PAST WEEK? NO . FEVER NO . FLU LIKE SYMPTOMS? NO . COUGH NO . INTEGUMENTARY: DO YOU HAVE ANY RASHES OR OPEN SORES? NO . ALLERGIC/IMMUNO: ARE YOU ALLERGIC TO IV DYE? NO . ANY NEW ALLERGIES? NO . PSYCHIATRIC: DO YOU HAVE THOUGHTS OF HURTING YOURSELF OR SOMEONE ELSE? NO . ARE YOU ABUSED, NEGLECTED, OR IN AN UNSAFE ENVIRONMENT? NO . ENDOCRINOLOGY: ARE YOU DIABETIC? NO . OTHER: DO YOU NEED ANY PRESCRIPTIONS? NO . IF YES, PLEASE LIST: ____ . ANY NEW PROBLEMS WITH YOUR MEDICATIONS? NO . WHEN DID YOU LAST EAT? ____ . WHEN DID YOU LAST DRINK? ____ . WHAT DID YOU LAST DRINK? ____ . NAME OF PERSON DRIVING YOU HOME? ____ . DO YOU HAVE ANY OTHER QUESTIONS OR CONCERNS NO . VITAL SIGNS WT 230 LBS, HT 6'0", BMI 31.19 INDEX, BP 113/65 MM HG, HR 75 /MIN, RR 18 /MIN, TEMP 97.4 F, OXYGEN SAT % 96%, NA INITIALS SC 11:50, REVIEWED BY: BV. EXAMINATION GENERAL EXAMINATION: PATIENT IS ALERT O X 3 AND COOPERATIVE. TENDERNESS IN THE LOW BACK AREA IN THE PARASPINAL MUSCLE GROUP. RIGHT LEG IS WEAKER AT EXTENSION AND FLEXION. STRAIGHT LEG RAISE OF THE RIGHT LEG IS POSITIVE AT 40 DEGREES FOR RADICULOPATHY. MRI OF THE LUMBAR SPINE DONE ON 03/11/2011 SHOWS POST LAMINECTOMY CHANGES AND A BULGING DISC AT L5-S1. 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 BERNAL'S PAIN MANAGEMENT CASE. DUE TO THE LUMBAR RADICULOPATHY AND THE PATIENT HAVING SIGNIFICANT PAIN RELIEF IN THE PAST, I WOULD LIKE TO MOVE FORWARD WITH A LUMBAR EPIDURAL STEROID INJECTION AT THIS TIME. WE DISCUSSED THE BENEFITS, RISKS, AND ALTERNATIVES OF THE INJECTION AND THE PATIENT WOULD LIKE TO PROCEED. I AM LOOKING TO INCREASE THE PATIENT'S MOBILITY AND FUNCTIONALITY AFTER THE INJECTION. THE PATIENT WILL FOLLOW UP A FEW WEEKS AFTER THE INJECTION. INSTRUCTIONS WERE GIVEN, QUESTIONS WERE ANSWERED, PATIENT REPORTS UNDERSTANDING AND AGREES WITH THE PLAN. I, JOURDAN LINDSEY, DOCUMENTED THE ABOVE INFORMATION ACTING A SCRIBE FOR DR. VERA. I HAVE REVIEWED THE ABOVE DOCUMENT, WRITTEN BY JOURDAN MARINELLI AND I VERIFY THAT IT IS ACCURATE. . PROCEDURES PN WORKMANS' COMP OPINION IN YOUR OPINION, WAS THE INCIDENT THAT THE PATIENT DESCRIBED THE COMPETENT MEDICAL CAUSE OF THIS INJURY/ILLNESS? YES ARE THE PATIENT'S COMPLAINTS CONSISTENT WITH HIS/HER HISTORY OF THE INJURY/ILLNESS? YES IS THE PATIENT'S HISTORY OF THE INJURY/ILLNESS CONSISTENT WITH YOUR OBJECTIVE FINDING? YES WHAT IS THE PERCENTAGE OF TEMPORARY IMPAIRMENT? MARKED = 75% IS THE PATIENT WORKING? NO DOCTOR ON SITE: ANA STARKS MD PROCEDURE CODES FA211 ESTABILISHED PATIENT [facility] FACILITY CHARGE G8427 CURRENT MEDS W/DOSAGES DOCUMENTED G8730 PAIN ASSESS POS TOOL F/U PLAN DOC DISPOSITION & COMMUNICATION FOLLOW UP 3 WEEKS ELECTRONICALLY SIGNED BY ANA VERA MD, MD ON 08/06/2018 AT 09:17 AM EDT DISCLAIMER : THIS IS A VISIT SUMMARY EXTRACTED FROM THE [employer] CHART. IT IS NOT A COPY OF THE [employer] PROGRESS NOTE. MTDD
== END ==
LOC: M PAIN 12:00
PROVIDERS: ATTEND Anesthesiology
DX: M96.1 Postlaminectomy syndrome, not elsewhere classified (principal); M51.16 Intervertebral disc disorders with radiculopathy, lumbar region; I10 Essential (primary) hypertension; Z79.82 Long term (current) use of aspirin; Z79.899 Other long term (current) drug therapy

== ENCOUNTER → 2018-08-20 | Outpatient (CLI) | payer OTHER ==
[~2018-08-20] MED LIST changes: -/TAMS4CA OR; +FLOM0.4C39 OR
--- NOTE | 2018-09-07 00:17 | ECWPNPC ---
PATIENT NAME: AMNA BERNAL : 1955 GENDER: MALE VISIT DATE: 08/20/2018 DISCHARGE DATE: 08/20/18 1534 VISIT LOCKED DATE TIME: PHYSICIAN: ANA VERA MD RESOURCE: ANA VERA MD REASON FOR APPOINTMENT 1. W/C F/U- DISCUSS DENIAL OF LESI HISTORY OF PRESENT ILLNESS HISTORY OF PRESENT ILLNESS: PAIN THE PATIENT DESCRIBES THE PAIN... 63 YEAR OLD MALE PATIENT WITH A HISTORY OF CHRONIC LOW BACK AND RIGHT LEG PAIN. THE PATIENT DESCRIBES THE PAIN ACHING, SORE, TENDER, STABBING, AND CONTINUOUS WITH A PAIN SCORE OF 8-10/10 DEPENDING ON PHYSICAL ACTIVITY. THE PATIENT WAS HURT IN A WORK RELATED INJURY ON 05/08/2009 WHILE WORKING FOR [employer] WHEN HE FELL WHILE GETTING OUT OF A FORKLIFT CAUSING HIM TO INJURE HIS BACK. THE PATIENT SAYS THAT HIS PAIN IS IN HIS LOW BACK AND RADIATES DOWN INTO HIS RIGHT BUTTOCK, RIGHT HIP, RIGHT LEG, AND RIGHT FOOT. THE PATIENT SAYS THAT HIS PAIN HAS INCREASED SIGNIFICANTLY OVER THE PAST COUPLE OF MONTHS AND STATES THIS IS THE WORST IT HAS BEEN IN YEARS. THE PATIENT SAYS THAT HE HAS DIFFICULTY SLEEPING DUE TO THIS PAIN AND REPORTS ONLY SLEEPING 2-3 HOURS PER NIGHT. THE PATIENT SAYS HE CAN ONLY SIT FOR 15 MINUTES AND THEN HE HAS TO STAND UP OR ELSE HIS PAIN WILL WORSEN. THE PATIENT REPORTS THAT IT TOOK HIM 15 MINUTES TO WALK ACROSS THE PARKING LOT TO OUR FACILITY TODAY. THE PATIENT IS CURRENTLY USING LYRICA, LIDODERM PATCHES, AND HYDROCODONE TO AID IN PAIN RELIEF, BUT SAYS THAT THEY HAVE NOT BEEN HELPING WITH THIS SEVERE PAIN. THE PATIENT HAS RECEIVED LUMBAR EPIDURAL STEROID INJECTIONS IN THE PAST AND SAYS THAT THEY HAVE HELPED HIM SIGNIFICANTLY IMPROVE HIS MOBILITY AND FUNCTIONALITY. THE PATIENT REPORTS THAT AFTER HE RECEIVED THE INJECTION, HE HAS BEEN ABLE TO REDUCE HIS MEDICATION, SIT FOR LONGER PERIODS OF TIME, AND PERFORM DAILY ACTIVITIES SUCH WORKING AROUND HIS HOUSE AND COACHING HOCKEY. PATIENT DENIES UNEXPLAINABLE WEIGHT LOSS, FEVER, CHILLS, NEW CHANGES ON HIS URINARY OR BOWEL CONTROL. FALL RISK SCREENING: SCREENING :NO FALLS REPORTED IN THE LAST YEAR CURRENT MEDICATIONS TAKING LEVOTHYROXINE SODIUM 25 MCG CAPSULE 1 TABLET ON AN EMPTY STOMACH IN THE MORNING ORALLY ONCE A DAY TAKING FLOMAX 0.4 MG CAPSULE 1 CAPSULE 30 MINUTES AFTER THE SAME MEAL EACH DAY ORALLY ONCE A DAY TAKING ASPIR-81 81 MG TABLET DELAYED RELEASE 1 TABLET ORALLY ONCE A DAY TAKING LIDODERM 5 % PATCH 1 PATCH TO INTACT SKIN REMOVE AFTER 12 HOURS EXTERNALLY ONCE A DAY TAKING LYRICA 75 MG CAPSULE 1 CAPSULE ORALLY TID PRN TAKING HYDROCODONE-ACETAMINOPHEN 7.5-325 MG TABLET 1 TABLET NEEDED ORALLY TID PRN MEDICATION LIST REVIEWED AND RECONCILED WITH THE PATIENT PAST MEDICAL HISTORY LOW BACK PAIN ALLERGIES N.K.D.A. SURGICAL HISTORY LAMINECTOMY L4-L5 2005 FAMILY HISTORY MOTHER: ALIVE, DIAGNOSED WITH OTHER 3 BROTHER(S) , 1 SISTER(S) . 2 SON(S) - HEALTHY. FATHER UNKNOWN\\NMOM-DEMENTIA\\NONE BROTHER R\\/T HEART DISEASE. SOCIAL HISTORY GENERAL: TOBACCO USE ARE YOU A:NONSMOKER LATEX QUESTIONNAIRE LATEX ALLERGY : HAVE YOU EVER DEVELOPED ANY TYPE OF REACTION AFTER HANDLING LATEX PRODUCTS SUCH RUBBER GLOVES, CONDOMS, DIAPHRAGMS, BALLOONS, SOCKS, OR UNDERWEAR?NO LATEX ALLERGY : HAVE YOU EVER DEVELOPED ANY TYPE OF REACTION DURING OR AFTER DENTAL APPOINTMENT, VAGINAL/RECTAL EXAMINATION, SURGICAL PROCEDURE, OR ANY OTHER EXPOSURE?NO LATEX RISK : HAVE YOU EVER HAD ANY DIFFICULTY BREATHING OR HIVES AFTER EATING OR HANDLING ANY FRUITS, OR VEGETABLES; SUCH KIWI, BANANAS, STONE FRUITS, OR CHESTNUTSNO LATEX RISK : DO YOU HAVE A PREVIOUS PERSONAL HISTORY OF MORE THAN NINE SURGERIES, SPINA BIFIDA, OR REPEATED CATHERTIZATIONS? NO LATEX RISK : ARE YOU FREQUENTLY EXPOSED TO LATEX PRODUCTS IN YOUR OCCUPATION?NO DATE ASKED : 07/24/2018 ALCOHOL SCREENING DID YOU HAVE A DRINK CONTAINING ALCOHOL IN THE PAST YEAR?NO POINTS0 INTERPRETATIONNEGATIVE RECREATIONAL DRUG USE DRUG USE?NO CAFFEINE CAFFEINE USE?YES HOW OFTEN AND HOW MUCH? 1 CUP DAILY [employer] [id number] CONGREGATION LANGUAGE LANGUAGES SPOKEN:GREEK EDUCATION LEVEL OF EDUCATION:NOT FINISHED COLLEGE LEARNING BARRIERS / SPECIAL NEEDS BARRIERS TO LEARNING?NO HEARING IMPAIRED?NO VISION IMPAIRED?NO COGNITIVELY IMPAIRED?NO READINESS TO LEARN?YES LEARNING PREFERENCES?NO LEARNING CAPABILITIES PRESENT?YES EMOTIONAL BARRIERS?NO SPECIAL DEVICES?NO SPANNER OPERATOR NEEDED?NO DOMESTIC VIOLENCE DO YOU FEEL SAFE IN YOUR ENVIRONMENT?YES PAIN CLINIC PFS, CLERGY, PUBLIC HEALTH REFERRALS PFS REFERRAL NEEDED?NO CLERGY REFERRAL NEEDED?NO PUBLIC HEALTH REFERRAL NEEDED?NO WAS THE PROVIDER NOTIFIED OF ANY PERTINENT INFO? N/A HAS THE PATIENT BEEN EDUCATED REGARDING HIS/HER PLAN OF CARE?YES PLEASE DOCUMENT ANY ADDTIONAL DETAILS. LUMBAR EPIDURAL HAS THE PATIENT BEEN EDUCATED REGARDING PAIN, THE RISK FOR PAIN, THE IMPORTANCE OF EFFECTIVE PAIN MANAGEMENT, AND THE PAIN ASSESSMENT PROCESS?YES ADVANCE DIRECTIVE ADVANCE DIRECTIVE DISCUSSED WITH PATIENT:YES 07/24/18 4566 PT DOES NOT HAVE ANY ADVANCED DIRECTIOS AND HE DECLINES INFORMATION ON HCP AT THIS TIME. BV REVIEWED WITH PATIENT 01/14/18 0915 LAS04/13/18 1121 REVIEWED WITH PT. ALISAIEWED WITH PT 07/24/18 1158 BV. HOSPITALIZATION/MAJOR DIAGNOSTIC PROCEDURE BACK PAIN REVIEW OF SYSTEMS REVIEWED BY: PROVIDER: ANA VERA MD . CONSTITUTIONAL: ANY CHANGE IN YOUR MEDICAL CONDITION? NO . CHILLS NO . FEVER NO . INFECTION: DO YOU HAVE NEW INFECTIONS? NO . DO YOU HAVE HISTORY OF MRSA? NO . MUSCULOSKELETAL: ANY NEW PATTERNS OF PAIN OR NUMBNESS? NO . GASTROENTEROLOGY: ANY NEW CHANGE IN BOWEL CONTROL? NO . GENITOURINARY: ANY NEW CHANGE IN BLADDER CONTROL? NO . IS THERE A CHANCE YOU COULD BE ? NO . HEMATOLOGY/LYMPH: DO YOU TAKE ANY BLOOD THINNERS? (FOR EXAMPLE- COUMADIN, PLAVIX, AGGRENOX, PLATEL, PRADAXA, OR XARELTO) NO . WHEN WAS YOUR LAST DOSE? DATE: TIME: . NEUROLOGY: HAVE YOU FALLEN IN THE PAST 12 MONTHS? NO . ANY NEW EXTREMITY NUMBNESS OR WEAKNESS? NO . CARDIOLOGY: DO YOU HAVE A PACEMAKER OR DEFIBRILLATOR? NO . RESPIRATORY: HAVE YOU BEEN SICK IN THE PAST WEEK? NO . FEVER NO . FLU LIKE SYMPTOMS? NO . COUGH NO . INTEGUMENTARY: DO YOU HAVE ANY RASHES OR OPEN SORES? NO . ALLERGIC/IMMUNO: ARE YOU ALLERGIC TO IV DYE? NO . ANY NEW ALLERGIES? NO . PSYCHIATRIC: DO YOU HAVE THOUGHTS OF HURTING YOURSELF OR SOMEONE ELSE? NO . ARE YOU ABUSED, NEGLECTED, OR IN AN UNSAFE ENVIRONMENT? NO . ENDOCRINOLOGY: ARE YOU DIABETIC? NO . OTHER: DO YOU NEED ANY PRESCRIPTIONS? NO . IF YES, PLEASE LIST: ____ . ANY NEW PROBLEMS WITH YOUR MEDICATIONS? NO . WHEN DID YOU LAST EAT? ____ . WHEN DID YOU LAST DRINK? ____ . WHAT DID YOU LAST DRINK? ____ . NAME OF PERSON DRIVING YOU HOME? ____ . DO YOU HAVE ANY OTHER QUESTIONS OR CONCERNS NO . VITAL SIGNS WT 231.4 LBS, HT 6'0", BMI 31.38 INDEX, BP 114/69 MM HG, HR 77 /MIN, RR 18 /MIN, TEMP 97.9 F, OXYGEN SAT % 99%, NA INITIALS SC 13:10, REVIEWED BY: ERIKA. EXAMINATION GENERAL EXAMINATION: PATIENT IS ALERT O X 3 AND COOPERATIVE. TENDERNESS IN THE LOW BACK AREA. PATIENT HAS DIFFICULTY STANDING. ANTALGIC GAIT. PATIENT IS LIMPING FROM HIS RIGHT LEG. RIGHT LEG IS WEAKER AT EXTENSION AND FLEXION. STRAIGHT LEG RAISE OF THE RIGHT LEG IS POSITIVE AT 20 DEGREES FOR RADICULOPATHY. MRI OF THE LUMBAR SPINE DONE ON 03/11/2011 SHOWS POST LAMINECTOMY CHANGES AND A BULGING DISC AT L5-S1. 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 BERNAL'S PAIN MANAGEMENT CASE. DUE TO THE LUMBAR RADICULOPATHY, I WOULD LIKE TO MOVE FORWARD WITH A LUMBAR EPIDURAL STEROID INJECTION. WE DISCUSSED THE BENEFITS, RISKS, AND ALTERNATIVES OF THE INJECTION AND THE PATIENT WOULD LIKE TO PROCEED. THE PATIENT HAS BENEFITED GREATLY FROM THIS INJECTION IN THE PAST AND HAS REPORTED MORE THAN 80% PAIN RELIEF FOR OVER 2 MONTHS, SO I BELIEVE THAT THE PATIENT NEEDS THIS INJECTION. THE PATIENT WILL FOLLOW UP 3 WEEKS AFTER THE INJECTION. INSTRUCTIONS WERE GIVEN, QUESTIONS WERE ANSWERED, PATIENT REPORTS UNDERSTANDING AND AGREES WITH THE PLAN. I, JOURDAN LINDSEY, DOCUMENTED THE ABOVE INFORMATION ACTING A SCRIBE FOR DR. VERA. I HAVE REVIEWED THE ABOVE DOCUMENT, WRITTEN BY JOURDAN MARINELLI AND I VERIFY THAT IT IS ACCURATE. . PROCEDURES PN WORKMANS' COMP OPINION IN YOUR OPINION, WAS THE INCIDENT THAT THE PATIENT DESCRIBED THE COMPETENT MEDICAL CAUSE OF THIS INJURY/ILLNESS? YES ARE THE PATIENT'S COMPLAINTS CONSISTENT WITH HIS/HER HISTORY OF THE INJURY/ILLNESS? YES IS THE PATIENT'S HISTORY OF THE INJURY/ILLNESS CONSISTENT WITH YOUR OBJECTIVE FINDING? YES WHAT IS THE PERCENTAGE OF TEMPORARY IMPAIRMENT? MARKED = 75% IS THE PATIENT WORKING? NO DOCTOR ON SITE: ANA STARKS MD PROCEDURE CODES G8427 CURRENT MEDS W/DOSAGES DOCUMENTED G8730 PAIN ASSESS POS TOOL F/U PLAN DOC FA211 ESTABILISHED PATIENT [facility] CHARGE DISPOSITION & COMMUNICATION FOLLOW UP 3 WEEKS ELECTRONICALLY SIGNED BY ANA VERA MD, MD ON 09/06/2018 AT 07:36 PM EDT DISCLAIMER : THIS IS A VISIT SUMMARY EXTRACTED FROM THE [employer] CHART. IT IS NOT A COPY OF THE [employer] PROGRESS NOTE. MTDD
== END ==
LOC: M PAIN 13:45
PROVIDERS: ATTEND Anesthesiology
DX: M51.16 Intervertebral disc disorders with radiculopathy, lumbar region (principal); M96.1 Postlaminectomy syndrome, not elsewhere classified; Z79.82 Long term (current) use of aspirin; Z79.899 Other long term (current) drug therapy

== ENCOUNTER → 2018-10-20 | Outpatient (CLI) | payer OTHER ==
--- NOTE | 2018-10-31 23:09 | ECWPNPC ---
PATIENT NAME: AMNA BERNAL : 1955 GENDER: MALE VISIT DATE: 10/20/2018 DISCHARGE DATE: 10/20/18 1605 VISIT LOCKED DATE TIME: PHYSICIAN: ANA VERA MD RESOURCE: ANA VERA MD REASON FOR APPOINTMENT 1. W/C LOW BACK PAIN HISTORY OF PRESENT ILLNESS HISTORY OF PRESENT ILLNESS: PAIN THE PATIENT DESCRIBES THE PAIN... THE PATIENT DESCRIBES THE PAIN... 63 YEAR OLD MALE PATIENT WITH A HISTORY OF CHRONIC LOW BACK AND RIGHT LEG PAIN. THE PATIENT DESCRIBES THE PAIN ACHING, SORE, AND CONTINUOUS WITH A PAIN SCORE OF 8-10/10 DEPENDING ON PHYSICAL ACTIVITY. THE PATIENT WAS HURT IN A WORK RELATED INJURY ON 05/08/2009 WHILE WORKING FOR [employer] A [employer] WHEN HE FELL WHILE GETTING OUT OF A FORKLIFT CAUSING HIM TO INJURE HIS BACK. THE PATIENT SAYS THAT HIS PAIN IS IN HIS LOW BACK AND RADIATES DOWN HIS RIGHT LEG. THE PATIENT REPORTS HAVING A BACK SURGERY IN 2005, BUT SAYS THE PAIN HAS PERSISTED. THE PATIENT SAYS THAT HIS PAIN NOW GOES FURTHER DOWN HIS LEG THAN IT USED TO. THE PATIENT SAYS THE PAIN NORMALLY STOPS ABOVE HIS KNEE, BUT IT HAS BEEN SO SEVERE RECENTLY THAT IT RADIATES ALL THE WAY DOWN TO HIS FOOT. THE PATIENT SAYS THAT HE HAS DIFFICULTY SLEEPING AND IS ABLE TO ONLY SLEEP FOR ABOUT 2 HOURS AT NIGHT DUE TO THE PAIN. THE PATIENT SAYS HE CAN ONLY SIT FOR 15 MINUTES AND THEN HE HAS TO STAND UP OR ELSE HIS PAIN WILL WORSEN. THE PATIENT IS CURRENTLY USING LYRICA, LIDODERM PATCHES, AND HYDROCODONE TO AID IN PAIN RELIEF, BUT SAYS THAT THEY HAVE NOT BEEN HELPING WITH THIS SEVERE PAIN. THE PATIENT HAS RECEIVED LUMBAR EPIDURAL STEROID INJECTIONS IN THE PAST AND SAYS THAT THEY HAVE SIGNIFICANTLY IMPROVED HIS MOBILITY AND FUNCTIONALITY. THE PATIENT REPORTS THAT AFTER HE RECEIVED THE INJECTION, HE HAS BEEN ABLE TO REDUCE HIS MEDICATION, SIT FOR LONGER PERIODS OF TIME, AND PERFORM DAILY ACTIVITIES SUCH WORKING AROUND HIS HOUSE AND COACHING HOCKEY. THE PATIENT EXPRESSES THAT HE IS FRUSTRATED BECAUSE HE IS UNABLE TO BE INVOLVED IN SUMMER ACTIVITIES WITH HIS FAMILY DUE TO THE INTENSE PAIN HE IS HAVING. PATIENT DENIES UNEXPLAINABLE WEIGHT LOSS, FEVER, CHILLS, NEW CHANGES ON HIS URINARY OR BOWEL CONTROL. FALL RISK SCREENING: SCREENING :NO FALLS REPORTED IN THE LAST YEAR CURRENT MEDICATIONS TAKING LEVOTHYROXINE SODIUM 25 MCG CAPSULE 1 TABLET ON AN EMPTY STOMACH IN THE MORNING ORALLY ONCE A DAY TAKING FLOMAX 0.4 MG CAPSULE 1 CAPSULE 30 MINUTES AFTER THE SAME MEAL EACH DAY ORALLY ONCE A DAY TAKING ASPIR-81 81 MG TABLET DELAYED RELEASE 1 TABLET ORALLY ONCE A DAY TAKING LIDODERM 5 % PATCH 1 PATCH TO INTACT SKIN REMOVE AFTER 12 HOURS EXTERNALLY ONCE A DAY TAKING LYRICA 75 MG CAPSULE 1 CAPSULE ORALLY TID PRN TAKING HYDROCODONE-ACETAMINOPHEN 7.5-325 MG TABLET 1 TABLET NEEDED ORALLY TID PRN MEDICATION LIST REVIEWED AND RECONCILED WITH THE PATIENT PAST MEDICAL HISTORY LOW BACK PAIN ALLERGIES N.K.D.A. SURGICAL HISTORY LAMINECTOMY L4-L5 2005 FAMILY HISTORY MOTHER: ALIVE, DIAGNOSED WITH OTHER 3 BROTHER(S) , 1 SISTER(S) . 2 SON(S) - HEALTHY. FATHER UNKNOWN\\NMOM-DEMENTIA\\NONE BROTHER R\\/T HEART DISEASE. SOCIAL HISTORY GENERAL: TOBACCO USE ARE YOU A:NONSMOKER PAIN CLINIC PFS, CLERGY, PUBLIC HEALTH REFERRALS PFS REFERRAL NEEDED?NO CLERGY REFERRAL NEEDED?NO PUBLIC HEALTH REFERRAL NEEDED?NO WAS THE PROVIDER NOTIFIED OF ANY PERTINENT INFO? N/A HAS THE PATIENT BEEN EDUCATED REGARDING HIS/HER PLAN OF CARE?YES PLEASE DOCUMENT ANY ADDTIONAL DETAILS. LUMBAR EPIDURAL HAS THE PATIENT BEEN EDUCATED REGARDING PAIN, THE RISK FOR PAIN, THE IMPORTANCE OF EFFECTIVE PAIN MANAGEMENT, AND THE PAIN ASSESSMENT PROCESS?YES LATEX QUESTIONNAIRE LATEX ALLERGY : HAVE YOU EVER DEVELOPED ANY TYPE OF REACTION AFTER HANDLING LATEX PRODUCTS SUCH RUBBER GLOVES, CONDOMS, DIAPHRAGMS, BALLOONS, SOCKS, OR UNDERWEAR?NO LATEX ALLERGY : HAVE YOU EVER DEVELOPED ANY TYPE OF REACTION DURING OR AFTER DENTAL APPOINTMENT, VAGINAL/RECTAL EXAMINATION, SURGICAL PROCEDURE, OR ANY OTHER EXPOSURE?NO LATEX RISK : HAVE YOU EVER HAD ANY DIFFICULTY BREATHING OR HIVES AFTER EATING OR HANDLING ANY FRUITS, OR VEGETABLES; SUCH KIWI, BANANAS, STONE FRUITS, OR CHESTNUTSNO LATEX RISK : DO YOU HAVE A PREVIOUS PERSONAL HISTORY OF MORE THAN NINE SURGERIES, SPINA BIFIDA, OR REPEATED CATHERTIZATIONS? NO LATEX RISK : ARE YOU FREQUENTLY EXPOSED TO LATEX PRODUCTS IN YOUR OCCUPATION?NO DATE ASKED : 07/24/2018 CAFFEINE CAFFEINE USE?YES HOW OFTEN AND HOW MUCH? 1 CUP DAILY ADVANCE DIRECTIVE ADVANCE DIRECTIVE DISCUSSED WITH PATIENT:YES 10/20/18 PT DOES NOT HAVE ANY ADVANCED DIRECTIOS AND HE DECLINES INFORMATION ON HCP AT THIS TIME. BV EDUCATION LEVEL OF EDUCATION:NOT FINISHED COLLEGE JEW [id number] ZOROASTRIANISM LANGUAGE LANGUAGES SPOKEN:POLISH DOMESTIC VIOLENCE DO YOU FEEL SAFE IN YOUR ENVIRONMENT?YES ALCOHOL SCREENING DID YOU HAVE A DRINK CONTAINING ALCOHOL IN THE PAST YEAR?NO POINTS0 INTERPRETATIONNEGATIVE RECREATIONAL DRUG USE DRUG USE?NO LEARNING BARRIERS / SPECIAL NEEDS BARRIERS TO LEARNING?NO HEARING IMPAIRED?NO VISION IMPAIRED?NO COGNITIVELY IMPAIRED?NO READINESS TO LEARN?YES LEARNING PREFERENCES?NO LEARNING CAPABILITIES PRESENT?YES EMOTIONAL BARRIERS?NO SPECIAL DEVICES?NO DOCTOR OF PODIATRIC MEDICINE NEEDED?NO REVIEWED WITH PATIENT 01/14/18 0915 LAS04/13/18 1121 REVIEWED WITH PT. ADREVIEWED WITH PT 07/24/18 1158 BVREVIEWED WITH PT 10/20/18 1423 BV. HOSPITALIZATION/MAJOR DIAGNOSTIC PROCEDURE BACK PAIN REVIEW OF SYSTEMS REVIEWED BY: PROVIDER: ANA VERA MD . CONSTITUTIONAL: ANY CHANGE IN YOUR MEDICAL CONDITION? NO . CHILLS NO . FEVER NO . INFECTION: DO YOU HAVE NEW INFECTIONS? NO . DO YOU HAVE HISTORY OF MRSA? NO . MUSCULOSKELETAL: ANY NEW PATTERNS OF PAIN OR NUMBNESS? YES, PT HAS INCREASING INTENSITY OF PAIN AND IT INTERMITTENTLY SHOOTS DOWN RIGHT LEG TO BELOW KNEE . GASTROENTEROLOGY: ANY NEW CHANGE IN BOWEL CONTROL? NO . GENITOURINARY: ANY NEW CHANGE IN BLADDER CONTROL? NO . IS THERE A CHANCE YOU COULD BE ? NO . HEMATOLOGY/LYMPH: DO YOU TAKE ANY BLOOD THINNERS? (FOR EXAMPLE- COUMADIN, PLAVIX, AGGRENOX, PLATEL, PRADAXA, OR XARELTO) NO . WHEN WAS YOUR LAST DOSE? DATE: TIME: . NEUROLOGY: HAVE YOU FALLEN IN THE PAST 12 MONTHS? NO . ANY NEW EXTREMITY NUMBNESS OR WEAKNESS? NO . CARDIOLOGY: DO YOU HAVE A PACEMAKER OR DEFIBRILLATOR? NO . RESPIRATORY: HAVE YOU BEEN SICK IN THE PAST WEEK? NO . FEVER NO . FLU LIKE SYMPTOMS? NO . COUGH NO . INTEGUMENTARY: DO YOU HAVE ANY RASHES OR OPEN SORES? NO . ALLERGIC/IMMUNO: ARE YOU ALLERGIC TO IV DYE? NO . ANY NEW ALLERGIES? NO . PSYCHIATRIC: DO YOU HAVE THOUGHTS OF HURTING YOURSELF OR SOMEONE ELSE? NO . ARE YOU ABUSED, NEGLECTED, OR IN AN UNSAFE ENVIRONMENT? NO . ENDOCRINOLOGY: ARE YOU DIABETIC? NO . OTHER: DO YOU NEED ANY PRESCRIPTIONS? NO . IF YES, PLEASE LIST: ____ . ANY NEW PROBLEMS WITH YOUR MEDICATIONS? NO . WHEN DID YOU LAST EAT? ____ . WHEN DID YOU LAST DRINK? ____ . WHAT DID YOU LAST DRINK? ____ . NAME OF PERSON DRIVING YOU HOME? ____ . DO YOU HAVE ANY OTHER QUESTIONS OR CONCERNS PT WANTS TO DISCUSS W/C DENIAL OF LESI . VITAL SIGNS WT 234.0 LBS, HT 6'0", BMI 31.73 INDEX, BP 117/60 MM HG, HR 80 /MIN, RR 18 /MIN, TEMP 98.5 F, OXYGEN SAT % 98%, NA INITIALS AW 1416, REVIEWED BY: BV. EXAMINATION GENERAL EXAMINATION: PATIENT IS ALERT O X 3 AND COOPERATIVE. TENDERNESS IN THE LOW BACK AREA. RIGHT LEG IS WEAKER AT EXTENSION AND FLEXION. STRAIGHT LEG RAISE OF THE RIGHT LEG IS POSITIVE AT 15 DEGREES FOR RADICULOPATHY. MRI OF THE LUMBAR SPINE DONE ON 03/11/2011 SHOWS POST LAMINECTOMY CHANGES AND A BULGING DISC AT L5-S1. 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 BERNAL'S PAIN MANAGEMENT CASE. DUE TO THE LUMBAR RADICULOPATHY AND THE PATIENT RECEIVING SEVERAL MONTHS OF GOOD PAIN RELIEF IN THE PAST, I WOULD LIKE TO MOVE FORWARD WITH A LUMBAR EPIDURAL STEROID INJECTION. WE DISCUSSED THE BENEFITS, RISKS, AND ALTERNATIVES OF THE INJECTION AND THE PATIENT WOULD LIKE TO PROCEED. I WILL ALSO REFER THE PATIENT TO HIS PREVIOUS SURGEON, DR. WADDELL, TO SEE IF HE IS A CANDIDATE FOR SURGERY. THE PATIENT IS GOING TO CONSIDER A DCS TRIAL DUE TO THE SEVERE PAIN FROM HIS LOW BACK DOWN HIS RIGHT LEG. THE PATIENT WILL FOLLOW UP IN 3 MONTHS. INSTRUCTIONS WERE GIVEN, QUESTIONS WERE ANSWERED, PATIENT REPORTS UNDERSTANDING AND AGREES WITH THE PLAN. I, JOURDAN LINDSEY, DOCUMENTED THE ABOVE INFORMATION ACTING A SCRIBE FOR DR. VERA. I HAVE REVIEWED THE ABOVE DOCUMENT, WRITTEN BY JOURDAN MARINELLI AND I VERIFY THAT IT IS ACCURATE. . PROCEDURES PN WORKMANS' COMP OPINION IN YOUR OPINION, WAS THE INCIDENT THAT THE PATIENT DESCRIBED THE COMPETENT MEDICAL CAUSE OF THIS INJURY/ILLNESS? YES ARE THE PATIENT'S COMPLAINTS CONSISTENT WITH HIS/HER HISTORY OF THE INJURY/ILLNESS? YES IS THE PATIENT'S HISTORY OF THE INJURY/ILLNESS CONSISTENT WITH YOUR OBJECTIVE FINDING? YES WHAT IS THE PERCENTAGE OF TEMPORARY IMPAIRMENT? MARKED = 75% IS THE PATIENT WORKING? NO DOCTOR ON SITE: ANA STARKS MD PREVENTIVE MEDICINE PAIN CLINIC TEACHING: PROCEDURE TEACHING AGAIN REVIEWED THE PRE PROCEDURE EDUCATION WITH THE PT WHO VERBALIZES UDERSTANDING IF IT DOES GET APPROVED THIS TIME . I TOLD PT HE WOULD HAVE TO HAVE A SUPERVISOR COAL HANDLING AND HE VERBALIZES UNDERSTNADING. PROCEDURE CODES FA211 ESTABILISHED PATIENT [facility] CHARGE G8427 CURRENT MEDS W/DOSAGES DOCUMENTED G8730 PAIN ASSESS POS TOOL F/U PLAN DOC DISPOSITION & COMMUNICATION FOLLOW UP 3 MONTHS (REASON: W/C LOW BACK) ELECTRONICALLY SIGNED BY ANA VERA MD, MD ON 10/31/2018 AT 05:10 PM EDT DISCLAIMER : THIS IS A VISIT SUMMARY EXTRACTED FROM THE [employer] CHART. IT IS NOT A COPY OF THE [employer] PROGRESS NOTE. DAXA
== END ==
LOC: M PAIN 14:30
PROVIDERS: ATTEND Anesthesiology
DX: M51.16 Intervertebral disc disorders with radiculopathy, lumbar region (principal); M96.1 Postlaminectomy syndrome, not elsewhere classified; Z79.82 Long term (current) use of aspirin; Z79.899 Other long term (current) drug therapy

== ENCOUNTER → 2019-02-05 | Outpatient (CLI) | payer OTHER ==
--- NOTE | 2019-02-16 00:58 | ECWPNPC ---
PATIENT NAME: AMNA BERNAL : 1955 GENDER: MALE VISIT DATE: 02/05/2019 DISCHARGE DATE: 02/05/19 1503 VISIT LOCKED DATE TIME: PHYSICIAN: ANA VERA MD RESOURCE: ANA VERA MD REASON FOR APPOINTMENT 1. WC FOLLOW UP HISTORY OF PRESENT ILLNESS HISTORY OF PRESENT ILLNESS: PAIN THE PATIENT DESCRIBES THE PAIN... 63 YEAR OLD MALE PATIENT WITH A HISTORY OF CHRONIC LOW BACK AND RIGHT LEG PAIN. THE PATIENT DESCRIBES THE PAIN ACHING, SORE, TENDER, AND DAILY WITH A PAIN SCORE OF 7-10/10 DEPENDING ON PHYSICAL ACTIVITY. 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 THE PATIENT STATES HIS PAIN STARTS IN HIS LOW BACK AND RADIATES DOWN MAINLY HIS RIGHT LEG. THE PATIENT SAYS HIS PAIN IS AFFECTING HIS ABILITY TO PERFORM HIS DAILY ACTIVITIES SUCH WALKING, GROCERY SHOPPING, CLEANING, AND SLEEPING. THE PATIENT SAYS HIS LAST L5-S1 LUMBAR EPIDURAL DONE ON 04/13/2018 PROVIDED HIM WITH SEVERAL MONTHS OF GOOD PAIN RELIEF THAT HELPED WITH INCREASED FUNCTIONALITY AND MOBILITY. THE PATIENT STATES HE HAS NOT RECEIVED ANY INJECTION THERAPY SINCE THEN, EVEN THOUGH WE CONTINUE TO REQUEST FOR ANOTHER LUMBAR EPIDURAL, DUE TO CONTINUOUS DENIALS FROM THE INSURANCE COMPANY. HE REPORTS THIS SITUATION IS AFFECTING HIS HEALTH AND HE IS GETTING VERY FRUSTRATED. FALL RISK SCREENING: SCREENING :NO FALLS REPORTED IN THE LAST YEAR CURRENT MEDICATIONS TAKING LEVOTHYROXINE SODIUM 25 MCG CAPSULE 1 TABLET ON AN EMPTY STOMACH IN THE MORNING ORALLY ONCE A DAY TAKING FLOMAX 0.4 MG CAPSULE 1 CAPSULE 30 MINUTES AFTER THE SAME MEAL EACH DAY ORALLY ONCE A DAY TAKING ASPIR-81 81 MG TABLET DELAYED RELEASE 1 TABLET ORALLY ONCE A DAY TAKING LIDODERM 5 % PATCH 1 PATCH TO INTACT SKIN REMOVE AFTER 12 HOURS EXTERNALLY ONCE A DAY TAKING LYRICA 75 MG CAPSULE 1 CAPSULE ORALLY TID PRN TAKING HYDROCODONE-ACETAMINOPHEN 7.5-325 MG TABLET 1 TABLET NEEDED ORALLY TID PRN MEDICATION LIST REVIEWED AND RECONCILED WITH THE PATIENT PAST MEDICAL HISTORY LOW BACK PAIN ALLERGIES N.K.D.A. SURGICAL HISTORY LAMINECTOMY L4-L5 2005 FAMILY HISTORY MOTHER: ALIVE, DIAGNOSED WITH OTHER SPECIFIED CONDITIONS INFLUENCING HEALTH STATUS 3 BROTHER(S) , 1 SISTER(S) . 2 SON(S) - HEALTHY. FATHER UNKNOWN\\NMOM-DEMENTIA\\NONE BROTHER R\\/T HEART DISEASE. SOCIAL HISTORY GENERAL: TOBACCO USE ARE YOU A:NONSMOKER PAIN CLINIC PFS, CLERGY, PUBLIC HEALTH REFERRALS PFS REFERRAL NEEDED?NO CLERGY REFERRAL NEEDED?NO PUBLIC HEALTH REFERRAL NEEDED?NO WAS THE PROVIDER NOTIFIED OF ANY PERTINENT INFO? N/A HAS THE PATIENT BEEN EDUCATED REGARDING HIS/HER PLAN OF CARE?YES PLEASE DOCUMENT ANY ADDTIONAL DETAILS. LUMBAR EPIDURAL HAS THE PATIENT BEEN EDUCATED REGARDING PAIN, THE RISK FOR PAIN, THE IMPORTANCE OF EFFECTIVE PAIN MANAGEMENT, AND THE PAIN ASSESSMENT PROCESS?YES LATEX QUESTIONNAIRE LATEX ALLERGY : HAVE YOU EVER DEVELOPED ANY TYPE OF REACTION AFTER HANDLING LATEX PRODUCTS SUCH RUBBER GLOVES, CONDOMS, DIAPHRAGMS, BALLOONS, SOCKS, OR UNDERWEAR?NO LATEX ALLERGY : HAVE YOU EVER DEVELOPED ANY TYPE OF REACTION DURING OR AFTER DENTAL APPOINTMENT, VAGINAL/RECTAL EXAMINATION, SURGICAL PROCEDURE, OR ANY OTHER EXPOSURE?NO DATE ASKED : 07/24/2018 LATEX RISK : HAVE YOU EVER HAD ANY DIFFICULTY BREATHING OR HIVES AFTER EATING OR HANDLING ANY FRUITS, OR VEGETABLES; SUCH KIWI, BANANAS, STONE FRUITS, OR CHESTNUTSNO LATEX RISK : DO YOU HAVE A PREVIOUS PERSONAL HISTORY OF MORE THAN NINE SURGERIES, SPINA BIFIDA, OR REPEATED CATHERIZATIONS? NO LATEX RISK : ARE YOU FREQUENTLY EXPOSED TO LATEX PRODUCTS IN YOUR OCCUPATION?NO CAFFEINE CAFFEINE USE?YES HOW OFTEN AND HOW MUCH? 1 CUP DAILY ADVANCE DIRECTIVE ADVANCE DIRECTIVE DISCUSSED WITH PATIENT:YES 10/20/18 PT DOES NOT HAVE ANY ADVANCED DIRECTIOS AND HE DECLINES INFORMATION ON HCP AT THIS TIME. 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 ADREVIEWED WITH PT 07/24/18 1158 BVREVIEWED WITH PT 10/20/18 1423 BV. HOSPITALIZATION/MAJOR DIAGNOSTIC PROCEDURE BACK PAIN REVIEW OF SYSTEMS REVIEWED BY: PROVIDER: ANA VERA MD . CONSTITUTIONAL: ANY CHANGE IN YOUR MEDICAL CONDITION? NO . CHILLS NO . FEVER NO . INFECTION: DO YOU HAVE NEW INFECTIONS? NO . DO YOU HAVE HISTORY OF MRSA? NO . MUSCULOSKELETAL: ANY NEW PATTERNS OF PAIN OR NUMBNESS? YES INCREASED PAIN IN RIGHT LEG . GASTROENTEROLOGY: ANY NEW CHANGE IN BOWEL CONTROL? NO . GENITOURINARY: ANY NEW CHANGE IN BLADDER CONTROL? NO . IS THERE A CHANCE YOU COULD BE ? NO . HEMATOLOGY/LYMPH: DO YOU TAKE ANY BLOOD THINNERS? (FOR EXAMPLE- COUMADIN, PLAVIX, AGGRENOX, PLATEL, PRADAXA, OR XARELTO) NO . WHEN WAS YOUR LAST DOSE? DATE: TIME: . NEUROLOGY: HAVE YOU FALLEN IN THE PAST 12 MONTHS? NO . ANY NEW EXTREMITY NUMBNESS OR WEAKNESS? NO . CARDIOLOGY: DO YOU HAVE A PACEMAKER OR DEFIBRILLATOR? NO . RESPIRATORY: HAVE YOU BEEN SICK IN THE PAST WEEK? NO . FEVER NO . FLU LIKE SYMPTOMS? NO . COUGH NO . INTEGUMENTARY: DO YOU HAVE ANY RASHES OR OPEN SORES? NO . ALLERGIC/IMMUNO: ARE YOU ALLERGIC TO IV DYE? NO . ANY NEW ALLERGIES? NO . PSYCHIATRIC: DO YOU HAVE THOUGHTS OF HURTING YOURSELF OR SOMEONE ELSE? NO . ARE YOU ABUSED, NEGLECTED, OR IN AN UNSAFE ENVIRONMENT? NO . ENDOCRINOLOGY: ARE YOU DIABETIC? NO . OTHER: DO YOU NEED ANY PRESCRIPTIONS? NO . IF YES, PLEASE LIST: ____ . ANY NEW PROBLEMS WITH YOUR MEDICATIONS? NO . WHEN DID YOU LAST EAT? ____ . WHEN DID YOU LAST DRINK? ____ . WHAT DID YOU LAST DRINK? ____ . NAME OF PERSON DRIVING YOU HOME? ____ . DO YOU HAVE ANY OTHER QUESTIONS OR CONCERNS PT HAS SOME QUESTIONS FOR WC TO BE AUTHORIZED FOR PROCEDURE . VITAL SIGNS WT 238.0 LBS, HT 6'0", BMI 32.28 INDEX, BP 113/64 MM HG, HR 60 /MIN, RR 18 /MIN, TEMP 97.6 F, OXYGEN SAT % 97%, SAFE IN ENV? (Y/N) YES, NA INITIALS AW 1413, REVIEWED BY: KG. EXAMINATION GENERAL EXAMINATION: PATIENT IS ALERT O X 3 AND COOPERATIVE. ANTALGIC WALK. PATIENT IS LIMPING FROM THE RIGHT LEG. RIGHT LEG IS WEAKER AT EXTENSION AND FLEXION. STRAIGHT LEG RAISE OF THE RIGHT LEG IS POSITIVE AT 15 DEGREES FOR RADICULOPATHY. TENDERNESS IN THE LOW BACK. MRI OF THE LUMBAR SPINE DONE ON 03/11/2011 SHOWS POST LAMINECTOMY CHANGES AND A BULGING DISC AT L5-S1. ASSESSMENTS LUMBAR POST-LAMINECTOMY SYNDROME - M96.1 (PRIMARY) INTERVERTEBRAL DISC DISORDERS WITH RADICULOPATHY, LUMBAR REGION - M51.16 INTERVERTEBRAL DISC DISORDERS WITH RADICULOPATHY, LUMBOSACRAL REGION - M51.17 TREATMENT LUMBAR POST-LAMINECTOMY SYNDROME CLINICAL NOTES: WE DISCUSSED SEVERAL ISSUES WITH MR. BERNAL'S PAIN MANAGEMENT CASE. DUE TO THE LUMBAR RADICULOPATHY, I WOULD LIKE TO MOVE FORWARD WITH A LUMBAR EPIDURAL STEROID INJECTION AT THIS TIME. WE DISCUSSED THE BENEFITS, RISKS, AND ALTERNATIVES OF THE INJECTION AND THE PATIENT WOULD LIKE TO PROCEED. REFERENCING FROM DR. ELIECER DIAMOND'S REPORT DONE ON November,, ON PAGE TWO HE INDICATES LUMBAR EPIDURAL STEROID INJECTIONS ARE INDICATED ONLY FOR ACUTE OR SUBACUTE PAIN. DR. DIAMOND ESTABLISHED EPIDURALS ARE NOT NECESSARY FOR CHRONIC PAIN. I DISAGREE WITH DR. MALONEY'S STATEMENTS. ON PAGE ONE OF WORKER'S COMPENSATION MEDICAL TREATMENT GUIDELINES, IT STATES THE PURPOSE OF INTERVENTIONS IS TO RESTORE FUNCTIONALITY, WITH OBJECTIVE FUNCTIONALITY INCLUDING INCREASED RANGE OF MOTION, ENDURANCE, STRENGTH, AND DECREASED PAIN SHOULD ALSO BE CONSIDERED A SUCCESSFUL TREATMENT. THE PATIENT HAS RESPONDED VERY WELL, WITH DECREASED PAIN AND INCREASED FUNCTIONALITY FOR MONTHS, FROM EACH OF HIS LUMBAR EPIDURAL STEROID INJECTIONS PERFORMED IN THE PAST. IN SECTION D.6.B. OF THE WC GUIDELINES, IT STATES THE PURPOSE OF EPIDURALS IS TO DECREASE PAIN, RESTORE RANGE OF MOTION, AND FACILITATE PROGRESS IN MORE ACTIVE PROGRAMS, WHICH IS WHAT WE HAVE ACHIEVED IN THE PAST. THERE ARE NO INDICATIONS IN THE GUIDELINES THAT EPIDURALS ARE ONLY FOR ACUTE PAIN. THEREFORE, DR. DE LA ROSA'S PREVIOUS STATEMENT IS INCORRECT. THE PATIENT IS NOT RECEIVING THE NECESSARY TREATMENT. HE IS NOT SLEEPING, HE IS NOT PERFORMING ACTIVITIES OF DAILY LIVING, SUFFERING OF PAIN AND HIS OVERALL HEALTH IS AFFECTED BECAUSE HE IS NOT RECEIVING ADEQUATE THERAPY. I WILL REQUEST ANOTHER LUMBAR EPIDURAL STEROID INJECTION FOR THE PATIENT, PROCEDURE THAT HAS BEEN PROVEN IN THE PAST TO BE VERY EFFECTIVE IN HIS CARE. THE PATIENT WILL FOLLOW UP IN SEVERAL WEEKS. INSTRUCTIONS WERE GIVEN, QUESTIONS WERE ANSWERED, PATIENT REPORTS UNDERSTANDING AND AGREES WITH THE PLAN. I, TIMOTEO MONTERO, DOCUMENTED THE ABOVE INFORMATION ACTING A SCRIBE FOR DR. VERA. I HAVE REVIEWED THE ABOVE DOCUMENT, WRITTEN BY TIMOTEO RAIIBRigoberto AND I VERIFY THAT IT IS ACCURATE. . OTHERS NOTES: 02/05/19 @1354 LUMBAR EPIDURAL STEROID INJECTION INFORMATION REVIEWED WITH PT. PT. VERBALIZES AN UNDERSTANDING. HOWARD FLORES. PROCEDURES PN WORKMANS' COMP OPINION IN YOUR OPINION, WAS THE INCIDENT THAT THE PATIENT DESCRIBED THE COMPETENT MEDICAL CAUSE OF THIS INJURY/ILLNESS? YES ARE THE PATIENT'S COMPLAINTS CONSISTENT WITH HIS/HER HISTORY OF THE INJURY/ILLNESS? YES IS THE PATIENT'S HISTORY OF THE INJURY/ILLNESS CONSISTENT WITH YOUR OBJECTIVE FINDING? YES WHAT IS THE PERCENTAGE OF TEMPORARY IMPAIRMENT? MARKED = 75% IS THE PATIENT WORKING? NO DOCTOR ON SITE: ANA STARKS MD PROCEDURE CODES FA211 ESTABILISHED PATIENT [facility] FACILITY CHARGE G8427 CURRENT MEDS W/DOSAGES DOCUMENTED G8730 PAIN ASSESS POS TOOL F/U PLAN DOC DISPOSITION & COMMUNICATION FOLLOW UP REASON: LESI ELECTRONICALLY SIGNED BY ANA VERA MD, MD ON 02/15/2019 AT 04:35 PM EDT DISCLAIMER : THIS IS A VISIT SUMMARY EXTRACTED FROM THE [employer] CHART. IT IS NOT A COPY OF THE [employer] PROGRESS NOTE. DAXA
== END ==
LOC: M PAIN 14:15
PROVIDERS: ATTEND Anesthesiology
DX: M96.1 Postlaminectomy syndrome, not elsewhere classified (principal); M51.16 Intervertebral disc disorders with radiculopathy, lumbar region; M51.17 Intervertebral disc disorders with radiculopathy, lumbosacral region; Z79.82 Long term (current) use of aspirin; Z79.899 Other long term (current) drug therapy

== ENCOUNTER → 2019-05-31 | Outpatient (CLI) | payer OTHER ==
[~2019-05-31] MED LIST changes: +ISOVUE-M 300 61% 15ML VIAL (Q9967) As Ordered ONE; +LIDOCAINE 1% SDV INJ 30 ML VIAL As Ordered ONE; +methylPREDNISolone SUSP 40 MG/ML (DEPO-medrol) VIAL (J1030) As Ordered ONE
--- NOTE | 2019-05-31 13:11 | REP ---
Partial lumbar spine series: Three views . History: Injection procedure for pain. Eight seconds of fluoroscopy time is reported. Findings: A sequence of three fluoroscopically obtained last image hold procedural spot radiographs of the lumbar spine document needle position and contrast injection associated with injection procedure. Electronically Signed by Rene Watt MD 05/31/2019 01:02 P
--- NOTE | 2019-06-12 06:43 | ECWPNPC ---
PATIENT NAME: AMNA BERNAL : 1955 GENDER: MALE VISIT DATE: 05/31/2019 DISCHARGE DATE: 05/31/19 1205 VISIT LOCKED DATE TIME: PHYSICIAN: ANA VERA MD RESOURCE: ANA VERA MD REASON FOR APPOINTMENT 1. W/C LESI L5/S1 HISTORY OF PRESENT ILLNESS HISTORY OF PRESENT ILLNESS: PAIN THE PATIENT DESCRIBES THE PAIN... FALL RISK SCREENING: SCREENING :NO FALLS REPORTED IN THE LAST YEAR CURRENT MEDICATIONS TAKING LEVOTHYROXINE SODIUM 25 MCG CAPSULE 1 TABLET ON AN EMPTY STOMACH IN THE MORNING ORALLY ONCE A DAY, NOTES: 05-29-19699 TAKING FLOMAX 0.4 MG CAPSULE 1 CAPSULE 30 MINUTES AFTER THE SAME MEAL EACH DAY ORALLY ONCE A DAY, NOTES: 699 TAKING ASPIR-81 81 MG TABLET DELAYED RELEASE 1 TABLET ORALLY ONCE A DAY, NOTES: 05-31-19699 TAKING LIDODERM 5 % PATCH 1 PATCH TO INTACT SKIN REMOVE AFTER 12 HOURS EXTERNALLY ONCE A DAY, NOTES: 05-30-192099 TAKING LYRICA 75 MG CAPSULE 1 CAPSULE ORALLY TID PRN, NOTES: 05-31-19699 TAKING HYDROCODONE-ACETAMINOPHEN 7.5-325 MG TABLET 1 TABLET NEEDED ORALLY TID PRN, NOTES: 05-30-19 08 MEDICATION LIST REVIEWED AND RECONCILED WITH THE PATIENT PAST MEDICAL HISTORY LOW BACK PAIN ALLERGIES N.K.D.A. SURGICAL HISTORY LAMINECTOMY L4-L5 2005 LEFT KNEE SURGERY FAMILY HISTORY MOTHER: ALIVE, DIAGNOSED WITH OTHER SPECIFIED CONDITIONS INFLUENCING HEALTH STATUS 3 BROTHER(S) , 1 SISTER(S) . 2 SON(S) - HEALTHY. FATHER UNKNOWN\\NMOM-DEMENTIA\\NONE BROTHER R\\/T HEART DISEASE. SOCIAL HISTORY GENERAL: TOBACCO USE ARE YOU A:NONSMOKER PAIN CLINIC PFS, CLERGY, PUBLIC HEALTH REFERRALS PFS REFERRAL NEEDED?NO CLERGY REFERRAL NEEDED?NO PUBLIC HEALTH REFERRAL NEEDED?NO WAS THE PROVIDER NOTIFIED OF ANY PERTINENT INFO? N/A HAS THE PATIENT BEEN EDUCATED REGARDING HIS/HER PLAN OF CARE?YES PLEASE DOCUMENT ANY ADDTIONAL DETAILS. LUMBAR EPIDURAL HAS THE PATIENT BEEN EDUCATED REGARDING PAIN, THE RISK FOR PAIN, THE IMPORTANCE OF EFFECTIVE PAIN MANAGEMENT, AND THE PAIN ASSESSMENT PROCESS?YES LATEX QUESTIONNAIRE LATEX ALLERGY : HAVE YOU EVER DEVELOPED ANY TYPE OF REACTION AFTER HANDLING LATEX PRODUCTS SUCH RUBBER GLOVES, CONDOMS, DIAPHRAGMS, BALLOONS, SOCKS, OR UNDERWEAR?NO LATEX ALLERGY : HAVE YOU EVER DEVELOPED ANY TYPE OF REACTION DURING OR AFTER DENTAL APPOINTMENT, VAGINAL/RECTAL EXAMINATION, SURGICAL PROCEDURE, OR ANY OTHER EXPOSURE?NO DATE ASKED : 07/24/2018 LATEX RISK : HAVE YOU EVER HAD ANY DIFFICULTY BREATHING OR HIVES AFTER EATING OR HANDLING ANY FRUITS, OR VEGETABLES; SUCH KIWI, BANANAS, STONE FRUITS, OR CHESTNUTSNO LATEX RISK : DO YOU HAVE A PREVIOUS PERSONAL HISTORY OF MORE THAN NINE SURGERIES, SPINA BIFIDA, OR REPEATED CATHERIZATIONS? NO LATEX RISK : ARE YOU FREQUENTLY EXPOSED TO LATEX PRODUCTS IN YOUR OCCUPATION?NO CAFFEINE CAFFEINE USE?YES HOW OFTEN AND HOW MUCH? 1 CUP DAILY ADVANCE DIRECTIVE ADVANCE DIRECTIVE DISCUSSED WITH PATIENT:YES 10/20/18 PT DOES NOT HAVE ANY ADVANCED DIRECTIOS AND HE DECLINES INFORMATION ON HCP AT THIS TIME. BV EDUCATION LEVEL OF EDUCATION:NOT FINISHED COLLEGE [employer] [id number] ZOROASTRIAN LANGUAGE LANGUAGES SPOKEN:NIGERIEN DOMESTIC VIOLENCE DO YOU FEEL SAFE IN YOUR ENVIRONMENT?YES ALCOHOL SCREENING DID YOU HAVE A DRINK CONTAINING ALCOHOL IN THE PAST YEAR?NO POINTS0 INTERPRETATIONNEGATIVE RECREATIONAL DRUG USE DRUG USE?NO LEARNING BARRIERS / SPECIAL NEEDS BARRIERS TO LEARNING?NO HEARING IMPAIRED?NO VISION IMPAIRED?NO COGNITIVELY IMPAIRED?NO READINESS TO LEARN?YES LEARNING PREFERENCES?NO LEARNING CAPABILITIES PRESENT?YES EMOTIONAL BARRIERS?NO SPECIAL DEVICES?NO SWITCH MAKER NEEDED?NO REVIEWED WITH PATIENT 01/14/18 0915 LAS04/13/18 1121 REVIEWED WITH PT. ADREVIEWED WITH PT 07/24/18 1158 BVREVIEWED WITH PT 10/20/18 1423 BVPRE SCREEN INTERVIEW 05/28/2019 LAS. HOSPITALIZATION/MAJOR DIAGNOSTIC PROCEDURE BACK PAIN REVIEW OF SYSTEMS REVIEWED BY: PROVIDER: . CONSTITUTIONAL: ANY CHANGE IN YOUR MEDICAL CONDITION? NO . CHILLS NO . FEVER NO . INFECTION: DO YOU HAVE NEW INFECTIONS? NO . DO YOU HAVE HISTORY OF MRSA? NO . MUSCULOSKELETAL: ANY NEW PATTERNS OF PAIN OR NUMBNESS? NO . GASTROENTEROLOGY: ANY NEW CHANGE IN BOWEL CONTROL? NO . GENITOURINARY: ANY NEW CHANGE IN BLADDER CONTROL? NO . IS THERE A CHANCE YOU COULD BE ? NO . HEMATOLOGY/LYMPH: DO YOU TAKE ANY BLOOD THINNERS? (FOR EXAMPLE- COUMADIN, PLAVIX, AGGRENOX, PLATEL, PRADAXA, OR XARELTO) NO . WHEN WAS YOUR LAST DOSE? DATE: TIME: . NEUROLOGY: HAVE YOU FALLEN IN THE PAST 12 MONTHS? NO . ANY NEW EXTREMITY NUMBNESS OR WEAKNESS? NO . CARDIOLOGY: DO YOU HAVE A PACEMAKER OR DEFIBRILLATOR? NO . RESPIRATORY: HAVE YOU BEEN SICK IN THE PAST WEEK? NO . FEVER NO . FLU LIKE SYMPTOMS? NO . COUGH NO . INTEGUMENTARY: DO YOU HAVE ANY RASHES OR OPEN SORES? NO . ALLERGIC/IMMUNO: ARE YOU ALLERGIC TO IV DYE? NO . ANY NEW ALLERGIES? NO . PSYCHIATRIC: DO YOU HAVE THOUGHTS OF HURTING YOURSELF OR SOMEONE ELSE? NO . ARE YOU ABUSED, NEGLECTED, OR IN AN UNSAFE ENVIRONMENT? NO . ENDOCRINOLOGY: ARE YOU DIABETIC? NO . OTHER: DO YOU NEED ANY PRESCRIPTIONS? NO . IF YES, PLEASE LIST: ____ . ANY NEW PROBLEMS WITH YOUR MEDICATIONS? NO . WHEN DID YOU LAST EAT? ____ . WHEN DID YOU LAST DRINK? ____ . WHAT DID YOU LAST DRINK? ____ . NAME OF PERSON DRIVING YOU HOME? ____ . DO YOU HAVE ANY OTHER QUESTIONS OR CONCERNS NO . VITAL SIGNS WT 242.2 LBS, HT 6'0", BMI 32.84 INDEX, BP 132/71 MM HG, HR 54 /MIN, RR 18 /MIN, TEMP 97.1 F, OXYGEN SAT % 100% RA, SAFE IN ENV? (Y/N) YES, REVIEWED BY: KGA. KRIS CMA. ASSESSMENTS INTERVERTEBRAL DISC DISORDERS WITH RADICULOPATHY, LUMBOSACRAL REGION - M51.17 (PRIMARY) POSTLAMINECTOMY SYNDROME, NOT ELSEWHERE CLASSIFIED - M96.1 TREATMENT POSTLAMINECTOMY SYNDROME, NOT ELSEWHERE CLASSIFIED [facility] FLUORO GUIDE SPINE INJECTION (PAIN)[id number] PROCEDURES PN WORKMANS' COMP OPINION IN YOUR OPINION, WAS THE INCIDENT THAT THE PATIENT DESCRIBED THE COMPETENT MEDICAL CAUSE OF THIS INJURY/ILLNESS? YES ARE THE PATIENT'S COMPLAINTS CONSISTENT WITH HIS/HER HISTORY OF THE INJURY/ILLNESS? YES IS THE PATIENT'S HISTORY OF THE INJURY/ILLNESS CONSISTENT WITH YOUR OBJECTIVE FINDING? YES WHAT IS THE PERCENTAGE OF TEMPORARY IMPAIRMENT? MARKED = 75% IS THE PATIENT WORKING? NO DOCTOR ON SITE: ANA STARKS MD PRE PROCEDURE DIAGNOSIS LUMBAR POST LAMINECTOMY PAIN SYNDROME, LUMBOSACRAL SPINAL STENOSIS, LUMBOSACRAL DISC DISORDER WITH RADICULOPATHY POST PROCEDURE DIAGNOSIS LUMBOSACRAL SPINAL STENOSIS , LUMBAR POST LAMINECTOMY PAIN SYNDROME LUMBOSACRAL DISC DISORDER WITH RADICULOPATHY PROCEDURE LUMBAR EPIDURAL STEROID INJECTION UNDER FLUOROSCOPIC GUIDANCE SURGEON DR. ANA VERA TELECOMMUNICATION EQUIPMENT REPAIRER NONE ANESTHESIA LOCAL PRE PROCEDURE NOTE THE PATIENT HAS A HISTORY OF CHRONIC LOW BACK PAIN. I EVALUATED THE PATIENT AND REVIEWED THE CHART. I WENT OVER THE RISKS, ALTERNATIVES, AND BENEFITS ASSOCIATED WITH THIS PROCEDURE. THE PATIENT WOULD LIKE TO PROCEED AND GIVES CONSENT TO PERFORM THE PROCEDURE. THE PATIENT DENIES UNEXPLAINABLE WEIGHT LOSS, FEVER, CHILLS, OR NEW CHANGES IN URINARY OR BOWEL CONTROL. DESCRIPTION OF PROCEDURE THE PATIENT WAS BROUGHT TO THE PROCEDURE ROOM AND PLACED IN THE PRONE POSITION. THE LUMBOSACRAL AREA WAS CLEANED WITH BETADINE SOLUTION AND DRAPED ASEPTICALLY. THE PROCEDURE WAS DONE UNDER STERILE CONDITIONS. I CHECKED LATERALITY AND THE LEVEL WHERE THE PROCEDURE WAS GOING TO BE PERFORMED WITH THE PATIENT AND THE SUPPORTING STAFF AT THE MOMENT OF THE TIME OUT IN THE PROCEDURE ROOM. UNDER FLUOROSCOPIC GUIDANCE, THE TARGET POINT WAS SELECTED AT THE INTERLAMINAR LEVEL OF L5-S1. LIDOCAINE WAS USED TO NUMB THE SKIN AND THE SUBCUTANEOUS TISSUE BELOW IT. EPIDURAL TUOHY NEEDLE, 17-GAUGE, WAS ADVANCED UNDER FLUOROSCOPIC GUIDANCE AND FOLLOWING PATIENT FEEDBACK UNTIL THE EPIDURAL SPACE WAS REACHED, 7 CM DEEP INTO THE SKIN BY THE LOSS OF RESISTANCE TECHNIQUE. ISOVUE M DYE 30%, 0.25 ML, WAS INJECTED SHOWING ADEQUATE SPREAD OF THE DYE. THEN, A SOLUTION OF 3 ML OF NORMAL SALINE WITH DEPO-MEDROL 60 MG WAS INJECTED SLOWLY FOLLOWING PATIENT FEEDBACK. THERE WAS NO EVIDENCE OF BLOOD, PARESTHESIA OR CEREBROSPINAL FLUID DURING THE PROCEDURE. THE PATIENT WAS SENT TO THE RECOVERY ROOM. THE PATIENT WAS MOVING THE EXTREMITIES AND DOING WELL. THERE WAS NO COMPLICATION DURING THE PROCEDURE. FLUOROSCOPY TIME WAS 8 SECONDS. POST PROCEDURE NOTE THE PATIENT WILL BE SEEN IN A FOLLOW UP IN THE NEXT FEW WEEKS. I AM LOOKING FOR LONG LASTING PAIN RELIEF WITH THIS INJECTION. INSTRUCTIONS WERE GIVEN, QUESTIONS WERE ANSWERED, AND THE PATIENT EXPRESSED UNDERSTANDING AND AGREES WITH THE PLAN. I, TIMOTEO MONTERO, DOCUMENTED THE ABOVE INFORMATION ACTING A SCRIBE FOR DR. VERA. I HAVE REVIEWED THE ABOVE DOCUMENT, WRITTEN BY TIMOTEO MONTERO SCRIBE AND I VERIFY THAT IT IS ACCURATE. PROCEDURE CODES 47264 LUMBAR/SACRAL W/ IMAGING [id number] RADXPS IN END [id number] PXD DISPOSITION & COMMUNICATION FOLLOW UP 2 WEEKS ELECTRONICALLY SIGNED BY ANA VERA MD, MD ON 06/11/2019 AT 05:18 PM EST DISCLAIMER : THIS IS A VISIT SUMMARY EXTRACTED FROM THE [employer] CHART. IT IS NOT A COPY OF THE [employer] PROGRESS NOTE. MTDD
== END ==
LOC: M PAIN 09:45
PROVIDERS: ATTEND Anesthesiology
DX: M51.17 Intervertebral disc disorders with radiculopathy, lumbosacral region (principal); M96.1 Postlaminectomy syndrome, not elsewhere classified; M54.5 Low back pain; Z79.82 Long term (current) use of aspirin; Z79.891 Long term (current) use of opiate analgesic; Z79.899 Other long term (current) drug therapy
CPT/HCPCS: 62323; J1030; Q9967

== ENCOUNTER → 2019-06-16 | Outpatient (CLI) | payer OTHER ==
[~2019-06-16] MED LIST changes: -ISOVUE-M 300 61% 15ML VIAL (Q9967) As Ordered ONE; -LIDOCAINE 1% SDV INJ 30 ML VIAL As Ordered ONE; -methylPREDNISolone SUSP 40 MG/ML (DEPO-medrol) VIAL (J1030) As Ordered ONE
--- NOTE | 2019-06-18 01:19 | ECWPNPC ---
PATIENT NAME: AMNA BERNAL : 1955 GENDER: MALE VISIT DATE: 06/16/2019 DISCHARGE DATE: 06/16/19 1105 VISIT LOCKED DATE TIME: PHYSICIAN: RUSSELL AAYLA RESOURCE: RUSSELL AYALA REASON FOR APPOINTMENT 1. W/C POST LESI HISTORY OF PRESENT ILLNESS HISTORY OF PRESENT ILLNESS: PAIN THE PATIENT DESCRIBES THE PAIN... 64 YEAR OLD MALE IN FOR POST LESI FOLLOW UP. HE RATES HIS PAIN PREPROCEDURE AT A 8-9/10 AND POST PROCEDURE AT A 1/10. HE RATES HIS PAIN CURRENTLY AT A 2/10 AND DESCRIBES IT ACHING, AND SORE. THE PATIENT WAS HURT IN A WORK RELATED INJURY ON 05/08/2009 WHILE WORKING A [employer]Y TE[employer] WHERE HE FELL WHILE GETTING OUT OF A FORKLIFT CAUSING HIM TO INJURE HIS BACK. THE PATIENT STATES HIS PAIN STARTS IN HIS LOW BACK AND RADIATES DOWN MAINLY HIS RIGHT LEG. THE PATIENT SAYS HIS PAIN IS AFFECTING HIS ABILITY TO PERFORM HIS DAILY ACTIVITIES SUCH WALKING, GROCERY SHOPPING, CLEANING, AND SLEEPING. FALL RISK SCREENING: SCREENING :NO FALLS REPORTED IN THE LAST YEAR CURRENT MEDICATIONS TAKING LEVOTHYROXINE SODIUM 25 MCG CAPSULE 1 TABLET ON AN EMPTY STOMACH IN THE MORNING ORALLY ONCE A DAY TAKING FLOMAX 0.4 MG CAPSULE 1 CAPSULE 30 MINUTES AFTER THE SAME MEAL EACH DAY ORALLY ONCE A DAY TAKING ASPIR-81 81 MG TABLET DELAYED RELEASE 1 TABLET ORALLY ONCE A DAY TAKING LIDODERM 5 % PATCH 1 PATCH TO INTACT SKIN REMOVE AFTER 12 HOURS EXTERNALLY ONCE A DAY TAKING LYRICA 75 MG CAPSULE 1 CAPSULE ORALLY TID PRN TAKING HYDROCODONE-ACETAMINOPHEN 7.5-325 MG TABLET 1 TABLET NEEDED ORALLY TID PRN MEDICATION LIST REVIEWED AND RECONCILED WITH THE PATIENT PAST MEDICAL HISTORY LOW BACK PAIN ALLERGIES N.K.D.A. SURGICAL HISTORY LAMINECTOMY L4-L5 2005 LEFT KNEE SURGERY FAMILY HISTORY MOTHER: , DIAGNOSED WITH OTHER SPECIFIED CONDITIONS INFLUENCING HEALTH STATUS 3 BROTHER(S) , 1 SISTER(S) . 2 SON(S) - HEALTHY. FATHER UNKNOWN\\NMOM-DEMENTIA\\NONE BROTHER R\\/T HEART DISEASE. SOCIAL HISTORY GENERAL: TOBACCO USE ARE YOU A:NONSMOKER PAIN CLINIC PFS, CLERGY, PUBLIC HEALTH REFERRALS PFS REFERRAL NEEDED?NO CLERGY REFERRAL NEEDED?NO PUBLIC HEALTH REFERRAL NEEDED?NO WAS THE PROVIDER NOTIFIED OF ANY PERTINENT INFO? N/A HAS THE PATIENT BEEN EDUCATED REGARDING HIS/HER PLAN OF CARE?YES PLEASE DOCUMENT ANY ADDTIONAL DETAILS. LUMBAR EPIDURAL HAS THE PATIENT BEEN EDUCATED REGARDING PAIN, THE RISK FOR PAIN, THE IMPORTANCE OF EFFECTIVE PAIN MANAGEMENT, AND THE PAIN ASSESSMENT PROCESS?YES LATEX QUESTIONNAIRE LATEX ALLERGY : HAVE YOU EVER DEVELOPED ANY TYPE OF REACTION AFTER HANDLING LATEX PRODUCTS SUCH RUBBER GLOVES, CONDOMS, DIAPHRAGMS, BALLOONS, SOCKS, OR UNDERWEAR?NO LATEX ALLERGY : HAVE YOU EVER DEVELOPED ANY TYPE OF REACTION DURING OR AFTER DENTAL APPOINTMENT, VAGINAL/RECTAL EXAMINATION, SURGICAL PROCEDURE, OR ANY OTHER EXPOSURE?NO DATE ASKED : 07/24/2018 LATEX RISK : HAVE YOU EVER HAD ANY DIFFICULTY BREATHING OR HIVES AFTER EATING OR HANDLING ANY FRUITS, OR VEGETABLES; SUCH KIWI, BANANAS, STONE FRUITS, OR CHESTNUTSNO LATEX RISK : DO YOU HAVE A PREVIOUS PERSONAL HISTORY OF MORE THAN NINE SURGERIES, SPINA BIFIDA, OR REPEATED CATHERIZATIONS? NO LATEX RISK : ARE YOU FREQUENTLY EXPOSED TO LATEX PRODUCTS IN YOUR OCCUPATION?NO CAFFEINE CAFFEINE USE?YES HOW OFTEN AND HOW MUCH? 1 CUP DAILY ADVANCE DIRECTIVE ADVANCE DIRECTIVE DISCUSSED WITH PATIENT:YES PT DOES NOT HAVE ANY ADVANCED DIRECTIOS AND HE DECLINES INFORMATION ON HCP AT THIS TIME. EDUCATION LEVEL OF EDUCATION:NOT FINISHED COLLEGE PRESYBETERIAN EUHGIGMG03 [employer] LANGUAGE LANGUAGES SPOKEN:WELSH DOMESTIC VIOLENCE DO YOU FEEL SAFE IN YOUR ENVIRONMENT?YES ALCOHOL SCREENING DID YOU HAVE A DRINK CONTAINING ALCOHOL IN THE PAST YEAR?NO POINTS0 INTERPRETATIONNEGATIVE RECREATIONAL DRUG USE DRUG USE?NO LEARNING BARRIERS / SPECIAL NEEDS BARRIERS TO LEARNING?NO HEARING IMPAIRED?NO VISION IMPAIRED?NO COGNITIVELY IMPAIRED?NO READINESS TO LEARN?YES LEARNING PREFERENCES?NO LEARNING CAPABILITIES PRESENT?YES EMOTIONAL BARRIERS?NO SPECIAL DEVICES?NO COPPER PLATER NEEDED?NO REVIEWED WITH PATIENT 01/14/18 0915 LAS04/13/18 1121 REVIEWED WITH PT. ADREVIEWED WITH PT 07/24/18 1158 BVREVIEWED WITH PT 10/20/18 1423 BVPRE SCREEN INTERVIEW 05/28/2019 LAS. HOSPITALIZATION/MAJOR DIAGNOSTIC PROCEDURE BACK PAIN REVIEW OF SYSTEMS REVIEWED BY: PROVIDER: PRANAV PRIETO . CONSTITUTIONAL: ANY CHANGE IN YOUR MEDICAL CONDITION? NO . CHILLS NO . FEVER NO . INFECTION: DO YOU HAVE NEW INFECTIONS? NO . DO YOU HAVE HISTORY OF MRSA? NO . MUSCULOSKELETAL: ANY NEW PATTERNS OF PAIN OR NUMBNESS? NO . GASTROENTEROLOGY: ANY NEW CHANGE IN BOWEL CONTROL? NO . GENITOURINARY: ANY NEW CHANGE IN BLADDER CONTROL? NO . IS THERE A CHANCE YOU COULD BE ? NO . HEMATOLOGY/LYMPH: DO YOU TAKE ANY BLOOD THINNERS? (FOR EXAMPLE- COUMADIN, PLAVIX, AGGRENOX, PLATEL, PRADAXA, OR XARELTO) NO . WHEN WAS YOUR LAST DOSE? DATE: TIME: . NEUROLOGY: HAVE YOU FALLEN IN THE PAST 12 MONTHS? NO . ANY NEW EXTREMITY NUMBNESS OR WEAKNESS? NO . CARDIOLOGY: DO YOU HAVE A PACEMAKER OR DEFIBRILLATOR? NO . RESPIRATORY: HAVE YOU BEEN SICK IN THE PAST WEEK? NO . FEVER NO . FLU LIKE SYMPTOMS? NO . COUGH NO . INTEGUMENTARY: DO YOU HAVE ANY RASHES OR OPEN SORES? NO . ALLERGIC/IMMUNO: ARE YOU ALLERGIC TO IV DYE? NO . ANY NEW ALLERGIES? NO . PSYCHIATRIC: DO YOU HAVE THOUGHTS OF HURTING YOURSELF OR SOMEONE ELSE? NO . ARE YOU ABUSED, NEGLECTED, OR IN AN UNSAFE ENVIRONMENT? NO . ENDOCRINOLOGY: ARE YOU DIABETIC? NO . OTHER: DO YOU NEED ANY PRESCRIPTIONS? NO . IF YES, PLEASE LIST: ____ . ANY NEW PROBLEMS WITH YOUR MEDICATIONS? NO . WHEN DID YOU LAST EAT? ____ . WHEN DID YOU LAST DRINK? ____ . WHAT DID YOU LAST DRINK? ____ . NAME OF PERSON DRIVING YOU HOME? ____ . DO YOU HAVE ANY OTHER QUESTIONS OR CONCERNS NO . VITAL SIGNS WT 239.0 LBS, HT 6'0", BMI 32.41 INDEX, BP 113/59 MM HG, HR 58 /MIN, RR 18 /MIN, TEMP 97.8 F, OXYGEN SAT % 97%, NA INITIALS AW 1037, REVIEWED BY: EM. EXAMINATION GENERAL EXAMINATION: GENERALNO ACUTE DISTRESS, WELL NOURISHED AND HYDRATED. PSYCHAPPROPRIATE MOOD AND AFFECT . LUNGS:CLEAR TO AUSCULTATION BILATERALLY, NO WHEEZES, RHONCHI, RALES. HEART:NO MURMURS, REGULAR RATE AND RHYTHM. ASSESSMENTS INTERVERTEBRAL DISC DISORDERS WITH RADICULOPATHY, LUMBOSACRAL REGION - M51.17 (PRIMARY) TREATMENT INTERVERTEBRAL DISC DISORDERS WITH RADICULOPATHY, LUMBOSACRAL REGION [facility] MRI SPINE, L.S. WITH [id number] CLINICAL NOTES: 64 YEAR OLD MALE IN FOR POST LESI. GIVEN PRESENTING SYMPTOMS AND RESULTS OF PHYSICAL EXAMINATION RECOMMEND GETTING AN UPDATED MRI WITH FOLLOW-UP IN ONE MONTH. PATIENT HAS EXPRESSED UNDERSTANDING OF AND WAS IN AGREEMENT WITH TREATMENT PLAN. GIVEN TIME TO ASK QUESTIONS AND EXPRESS CONCERNS. PROCEDURES PN WORKMANS' COMP OPINION IN YOUR OPINION, WAS THE INCIDENT THAT THE PATIENT DESCRIBED THE COMPETENT MEDICAL CAUSE OF THIS INJURY/ILLNESS? YES ARE THE PATIENT'S COMPLAINTS CONSISTENT WITH HIS/HER HISTORY OF THE INJURY/ILLNESS? YES IS THE PATIENT'S HISTORY OF THE INJURY/ILLNESS CONSISTENT WITH YOUR OBJECTIVE FINDING? YES WHAT IS THE PERCENTAGE OF TEMPORARY IMPAIRMENT? MARKED = 75% IS THE PATIENT WORKING? NO DOCTOR ON SITE: ANA STARKS MD PROCEDURE CODES FA211 ESTABILISHED PATIENT [facility] FACILITY CHARGE DISPOSITION & COMMUNICATION FOLLOW UP 4 WEEKS (REASON: LOW BACK PAIN W/C) ELECTRONICALLY SIGNED BY ANTONIO NAVARRETE ON 06/17/2019 AT 08:43 AM EST DISCLAIMER : THIS IS A VISIT SUMMARY EXTRACTED FROM THE [employer] CHART. IT IS NOT A COPY OF THE [employer] PROGRESS NOTE. DAXA
== END ==
LOC: M PAIN 10:30
PROVIDERS: ATTEND Family Medicine
DX: M51.17 Intervertebral disc disorders with radiculopathy, lumbosacral region (principal); Z79.82 Long term (current) use of aspirin; Z79.899 Other long term (current) drug therapy

== ENCOUNTER → 2019-12-07 | Outpatient (CLI) | payer OTHER | LOC: M PAIN 09:45 | PROVIDERS: ATTEND Family Medicine | DX: M51.17 Intervertebral disc disorders with radiculopathy, lumbosacral region (principal) ==

== ENCOUNTER → 2020-07-10 | Outpatient (CLI) | payer OTHER ==
[2020-07-10 14:15] LABS: BLOOD UREA NITROGEN 32 MG/DL (7-18); CREATININE FOR GFR 1.28 MG/DL (0.70-1.30); GLOMERULAR FILTRATION RATE > 60.0 (>49)
== END ==
LOC: M PLALAB 09:45
PROVIDERS: ATTEND Physical Medicine & Rehabilitation
DX: M51.36 Other intervertebral disc degeneration, lumbar region (principal)

== ENCOUNTER → 2020-12-04 | Outpatient (CLI) | payer OTHER ==
[2020-12-04 13:57] LABS: PLATELET COUNT, AUTOMATED 216 10^3/uL (150-450)
[2020-12-04 14:06] LABS: INR 0.92; PROTHROMBIN TIME 12.5 SECONDS (12.5-14.3)
[2020-12-04 14:07] LABS: PARTIAL THROMBOPLASTIN TIME 29.7 SECONDS (24.2-38.5)
== END ==
LOC: M PLALAB 10:28
PROVIDERS: ATTEND Physical Medicine & Rehabilitation
DX: Z01.812 Encounter for preprocedural laboratory examination (principal)

== ENCOUNTER → 2021-10-29 | Outpatient (CLI) | payer MEDICARE | LOC: M PLALAB 11:56 | PROVIDERS: ATTEND Orthopaedic Surgery | DX: M17.11 Unilateral primary osteoarthritis, right knee (principal) ==

== ENCOUNTER → 2024-05-28 | Outpatient (CLI) | payer OTHER, MEDICARE | LOC: M PLARAD 09:29 | PROVIDERS: ATTEND Physician Assistant | DX: M48.061 Spinal stenosis, lumbar region without neurogenic claudication (principal); M47.816 Spondylosis without myelopathy or radiculopathy, lumbar region; M51.86 Other intervertebral disc disorders, lumbar region ==